=== PATIENT | female | born 1960 | race African-American/Black ===

== ENCOUNTER 2016-09-02 20:29 | Emergency (ER) | payer BC, OTHER ==
[~2016-09-02] VITALS: Ht 165.1 cm; Wt 100.0 kg
[~2016-09-02 20:29] MED LIST: BENA5TAB3 PO; NPH,100V SQ; TRAM50TA PO
[2016-09-02] MEDS ORDERED: NIFEDIPINE XL 30MG TAB PO ONE (21:00)
[2016-09-02] MEDS ORDERED: ONDANSETRON HCL 4MG/5ML ORAL SOLN PO ONE (22:15)
[2016-09-02] MEDS ORDERED: ACETAMINOPHEN 325MG TABLET PO ONE (22:15)
[2016-09-02 22:17] VITALS: BP 233/109
== END 2016-09-02 22:26 | disposition home or self-care (01) ==
LOC: ER 20:40
DX: I16.0 Hypertensive urgency (principal); I11.0 Hypertensive heart disease with heart failure; I50.9 Heart failure, unspecified; R04.0 Epistaxis; E66.9 Obesity, unspecified; R51 Headache
CPT/HCPCS: 99284; Q0162; Z7610

== ENCOUNTER 2017-08-13 17:33 | Emergency (ER) | payer BC, OTHER ==
[~2017-08-13] VITALS: Ht 160 cm; Wt 77.0 kg
[2017-08-13 19:16] LABS: EOSINOPHILS % 1.5 % (0.0-5.0); HEMATOCRIT. 24.8 % (36.0-48.0); HEMOGLOBIN. 7.9 g/dL (12.0-16.0); LYMPHOCYTES % 11.2 % (20.0-50.0); MEAN CORPUSCULAR HEMOGLOBIN 25.2 pg (28.0-32.0); MEAN PLATELET VOLUME 8.5 fl (7.4-10.4); MONOCYTES % 11.9 % (2.0-8.0); NEUTROPHILS % 74.4 % (40.0-76.0); PLATELET 383 x1000/uL (130-400); RED BLOOD CELL COUNT 3.13 mill/uL (4.2-5.4); RED CELL DISTRIBUTION WIDTH 17.5 % (11.6-14.6)
[2017-08-13 19:19] LABS: CHLORIDE 109 mEq/L (98-107)
[2017-08-13 21:13] VITALS: BP 169/84
== END 2017-08-13 21:19 | disposition home or self-care (01) ==
LOC: ER 18:24
DX: R42 Dizziness and giddiness (principal); R51 Headache; E11.65 Type 2 diabetes mellitus with hyperglycemia; I11.0 Hypertensive heart disease with heart failure; I50.9 Heart failure, unspecified; Z79.4 Long term (current) use of insulin; W01.0XXA Fall on same level from slipping, tripping and stumbling without subsequent striking against object, initial encounter; Y93.89 Activity, other specified; Y92.018 Other place in single-family (private) house as the place of occurrence of the external cause
CPT/HCPCS: 36415; 70450; 80053; 85025; 99285

== ENCOUNTER 2018-05-14 04:48 | Emergency (ER) | payer BC, OTHER ==
[~2018-05-14] VITALS: Ht 170.2 cm; Wt 77.0 kg
[~2018-05-14 04:48] MED LIST changes: -BENA5TAB3 PO; +BENA5TAB6 PO
[2018-05-14] MEDS ORDERED: MORPHINE SULFATE 10 MG/ML CPJ IM ONE (10:00)
[2018-05-14] MEDS ORDERED: KETOROLAC 60MG/2ML VIAL IM ONE (10:00)
[2018-05-14 13:54] VITALS: BP 146/78
== END 2018-05-14 13:59 | disposition home or self-care (01) ==
LOC: ER 04:48
DX: M54.32 Sciatica, left side (principal); I50.9 Heart failure, unspecified; I13.0 Hypertensive heart and chronic kidney disease with heart failure and stage 1 through stage 4 chronic kidney disease, or unspecified chronic kidney disease; E11.22 Type 2 diabetes mellitus with diabetic chronic kidney disease; N18.9 Chronic kidney disease, unspecified; Z99.2 Dependence on renal dialysis; Z98.890 Other specified postprocedural states
CPT/HCPCS: 72170; 73552; 93005; 96372; 99283; J1885; J2270; Z7610

== ENCOUNTER 2018-06-27 00:35 | Emergency (ER) | payer BC ==
[~2018-06-27] VITALS: Ht 154.9 cm; Wt 68.0 kg
[2018-06-27] MEDS ORDERED: ONDANSETRON HCL 4MG/2ML INJ IV STA (01:28)
[2018-06-27] MEDS ORDERED: SODIUM CHLORIDE 0.9% 1,000 ML IV ONE (01:28)
[2018-06-27] MEDS ORDERED: MORPHINE SULFATE 4 MG/ML CPJ (NOT FOR IM USE) IV STA (01:28)
[2018-06-27 02:03] LABS: BASOPHILS % 1.6 % (0.0-2.0); EOSINOPHILS % 7.1 % (0.0-5.0); HEMOGLOBIN. 10.9 g/dL (12.0-16.0); LYMPHOCYTES % 12.5 % (20.0-50.0); MEAN CORPUSCULAR HEMOGLOBIN 24.8 pg (28.0-32.0); MEAN CORPUSCULAR VOLUME 79.6 fL (81.0-99.0); MEAN PLATELET VOLUME 7.9 fl (7.4-10.4); MONOCYTES % 7.4 % (2.0-8.0); NEUTROPHILS % 71.4 % (40.0-76.0); PLATELET 378 x1000/uL (130-400); RED CELL DISTRIBUTION WIDTH 21.9 % (11.6-14.6)
[2018-06-27 02:10] LABS: CHLORIDE 106 mEq/L (98-107)
[2018-06-27] MEDS ORDERED: VANCOMYCIN 1 G PREMIX 200 ML IV ONE (05:30)
[2018-06-27] MEDS ORDERED: PIPERACILLIN/TAZ 3.375G PREMIX 50 ML IV ONE (05:30)
[2018-06-27] MEDS ORDERED: IOHEXOL-350 100 ML BOTTLE ONE (06:33)
[2018-06-27 09:25] VITALS: BP 157/68
== END 2018-06-27 09:40 | disposition short-term general hospital (02) ==
LOC: ER 00:35 → CANBEDREQ 08:50 → ER 09:40
DX: L02.416 Cutaneous abscess of left lower limb (principal); I13.0 Hypertensive heart and chronic kidney disease with heart failure and stage 1 through stage 4 chronic kidney disease, or unspecified chronic kidney disease; E11.22 Type 2 diabetes mellitus with diabetic chronic kidney disease; N18.9 Chronic kidney disease, unspecified; I50.9 Heart failure, unspecified; E78.00 Pure hypercholesterolemia, unspecified; Z79.4 Long term (current) use of insulin; Z99.2 Dependence on renal dialysis; Z90.710 Acquired absence of both cervix and uterus; Z79.899 Other long term (current) drug therapy; Z98.890 Other specified postprocedural states
CPT/HCPCS: 36415; 71045; 72100; 72170; 75635; 80053; 83605; 85025; 87040; 93005; 93971; 96365; 96366; 96367; 96375; 99285; J2270; J2405; J2543; J3370; J7030; Q9967

== ENCOUNTER 2018-07-23 08:42 | Inpatient (IN) | payer BC, MEDICARE ==
[~2018-07-23] VITALS: Ht 162.6 cm; Wt 58.1 kg
[2018-07-23] MEDS ORDERED: HYDRALAZINE 20MG/ML VIAL IV ONE (09:00)
[2018-07-23 10:16] LABS: CHLORIDE 103 mEq/L (98-107); HEMATOCRIT. 47.2 % (36.0-48.0); HEMOGLOBIN. 14.9 g/dL (12.0-16.0); LYMPHOCYTES % 15.3 % (20.0-50.0); MEAN CORPUSCULAR HEMOGLOBIN 25.4 pg (28.0-32.0); MEAN CORPUSCULAR VOLUME 80.5 fL (81.0-99.0); MEAN PLATELET VOLUME 9.3 fl (7.4-10.4); NEUTROPHILS % 70.7 % (40.0-76.0); PLATELET 231 x1000/uL (130-400); RED BLOOD CELL COUNT 5.86 mill/uL (4.2-5.4); RED CELL DISTRIBUTION WIDTH 24.5 % (11.6-14.6)
[2018-07-23 10:20] LABS: ETHANOL BLOOD < 10 mg/dL
[2018-07-23 10:24] LABS: CREATINE KINASE 160 IU/L (26-192)
[2018-07-23 10:27] LABS: CREATINE KINASE MB FRACTION 4.8 ng/mL (0.5-3.6)
[2018-07-23 10:30] LABS: *AMPHETAMINES SCREEN URINE NEGATIVE (NEGATIVE); *BENZODIAZEPINES SCREEN URINE NEGATIVE (NEGATIVE); *COCAINE SCREEN URINE NEGATIVE (NEGATIVE); METHADONE URINE SCREEN NEGATIVE (NEGATIVE); OPIATES URINE SCREEN NEGATIVE (NEGATIVE)
[2018-07-23 10:31] LABS: CANNABINOID URINE SCREEN NEGATIVE (NEGATIVE); PHENCYCLIDINE URINE SCREEN NEGATIVE (NEGATIVE)
[2018-07-23 10:33] LABS: *BARBITURATES SCREEN URINE NEGATIVE (NEGATIVE)
[2018-07-23 10:40] LABS: INR 1.2; PARTIAL THROMBOPLASTIN TIME 26.8 sec (23.4-31.0); PROTHROMBIN TIME 11.8 sec (9.6-11.0)
[2018-07-23] MEDS ORDERED: LORAZEPAM 2MG/ML CPJ IV ONE (11:00)
[2018-07-23 11:18] LABS: PLATELET ESTIMATE NORMAL
[2018-07-23] MEDS ORDERED: DOCUSATE SODIUM 100MG CAPSULE PO PRN (12:00)
[2018-07-23] MEDS ORDERED: IPRATROPIUM/ALBUTEROL 0.5-3(2.5)MG/3ML NEB INH PRN (12:00)
[2018-07-23] MEDS ORDERED: MAGNESIUM/ALUMINUM HYDROXIDE/SIMETHICONE 30ML UDC PO PRN (12:00)
[2018-07-23] MEDS ORDERED: ACETAMINOPHEN 325MG TABLET PO PRN (12:00)
[2018-07-23] MEDS ORDERED: DIPHENHYDRAMINE 50MG/ML VIAL IV PRN (12:00)
[2018-07-23] MEDS ORDERED: NITROGLYCERIN 0.4MG TABLET SL SL PRN (12:00)
[2018-07-23] MEDS ORDERED: GUAIFENESIN 200MG/10ML SUGAR FREE UDC PO PRN (12:00)
[2018-07-23] MEDS ORDERED: DEXTROSE 50% WATER 50ML SYRINGE IV PRN (12:00)
[2018-07-23] MEDS ORDERED: CLONIDINE 0.1MG TABLET PO PRN (12:00)
[2018-07-23] MEDS ORDERED: ONDANSETRON HCL 4MG/2ML INJ IV PRN (12:00)
[2018-07-23] MEDS ORDERED: ZOLPIDEM TARTRATE 5MG TABLET PO PRN (12:00)
[2018-07-23] MEDS ORDERED: HALOPERIDOL LACTATE 5MG/ML VIAL IM PRN (12:00)
[2018-07-23 12:27] VITALS: BP 162/89
[2018-07-23 12:37] LABS: T4 FREE 1.07 ng/dL (0.76-1.46)
[2018-07-23] MEDS: SEVELAMER CARBONATE 800 MG TABLET PO SCH ×3 (12:50→18:10)
[2018-07-23] MEDS: INSULIN LISPRO 100 UNITS/ML SUBCUT SCH ×4 (12:50→21:06)
[2018-07-23] MEDS: BLOOD SUGAR DIAGNOSTIC STRIP TEST SCH ×3 (13:00→20:56)
[2018-07-23] MEDS: LOSARTAN POTASSIUM 25 MG TABLET PO SCH (13:00)
[2018-07-23] MEDS ORDERED: AMLODIPINE 5MG TABLET PO NR (13:00)
[2018-07-23] MEDS: HYDRALAZINE HCL 50MG TABLET PO SCH ×2 (14:00→20:17)
[2018-07-23 14:16] LABS: CLARITY URINE CLOUDY (CLEAR); COLOR URINE YELLOW (YELLOW); KETONES URINE NEGATIVE (NEGATIVE); LEUKOCYTE ESTERASE URINE NEGATIVE (NEGATIVE); NITRITE URINE NEGATIVE (NEGATIVE); OCCULT BLOOD URINE 1+ (NEGATIVE); PH URINE 5.5 (4.5-8.0); PROTEIN URINE 3+ (NEGATIVE); SPECIFIC GRAVITY URINE 1.017 (1.005-1.030); UROBILINOGEN URINE 0.2 E.U./dL (0.2-1.0)
[2018-07-23] MEDS: ENOXAPARIN 30MG/0.3ML SYR SUBCUT SCH (14:43)
[2018-07-23 15:42] VITALS: BP 176/98
[2018-07-23 16:28] LABS: CREATINE KINASE 125 IU/L (26-192)
[2018-07-23 16:30] LABS: CREATINE KINASE MB FRACTION 4.4 ng/mL (0.5-3.6)
[2018-07-23] MEDS: CEFTRIAXONE 1 G PREMIX 50 ML IV SCH (17:23)
[2018-07-23 20:00] VITALS: BP 199/98
[2018-07-23] MEDS: TRAMADOL 50MG TABLET PO PRN (20:17)
[2018-07-23] MEDS: FAMOTIDINE 20MG TABLET PO SCH (20:24)
[2018-07-23 21:26] VITALS: BP 176/93
[2018-07-23] MEDS ORDERED: INSULIN GLARGINE UD 100 UNITS/ML SYR SUBCUT SCH (22:00)
[2018-07-23] MEDS ORDERED: CLONIDINE 0.2MG TABLET PO PRN (22:15)
[2018-07-23] MEDS: NITROGLYCERIN 0.4MG/HR PATCH TOP SCH (23:14)
[2018-07-24] VITALS: BP 190/90
[2018-07-24 00:32] LABS: CREATINE KINASE 94 IU/L (26-192)
[2018-07-24 00:33] LABS: CREATINE KINASE MB FRACTION 3.3 ng/mL (0.5-3.6)
[2018-07-24] MEDS: TRAMADOL 50MG TABLET PO PRN ×2 (01:56→15:33)
[2018-07-24 04:00] VITALS: BP 113/64
[2018-07-24] MEDS: BLOOD SUGAR DIAGNOSTIC STRIP TEST SCH ×3 (04:43→20:58)
[2018-07-24] MEDS: HYDRALAZINE HCL 50MG TABLET PO SCH ×4 (04:43→20:58)
[2018-07-24 06:34] LABS: HEMATOCRIT. 39.7 % (36.0-48.0); HEMOGLOBIN. 12.8 g/dL (12.0-16.0); MEAN CORPUSCULAR HEMOGLOBIN 25.7 pg (28.0-32.0); MEAN CORPUSCULAR VOLUME 79.5 fL (81.0-99.0); MEAN PLATELET VOLUME 9.7 fl (7.4-10.4); PLATELET 189 x1000/uL (130-400); RED BLOOD CELL COUNT 4.99 mill/uL (4.2-5.4); RED CELL DISTRIBUTION WIDTH 24.7 % (11.6-14.6)
[2018-07-24 08:06] VITALS: BP 175/87
[2018-07-24] MEDS: INSULIN LISPRO 100 UNITS/ML SUBCUT SCH ×3 (08:55→20:59)
[2018-07-24] MEDS: SEVELAMER CARBONATE 800 MG TABLET PO SCH ×2 (08:56→13:10)
[2018-07-24] MEDS: FAMOTIDINE 20MG TABLET PO SCH (08:56)
[2018-07-24] MEDS: LOSARTAN POTASSIUM 25 MG TABLET PO SCH (08:57)
[2018-07-24] MEDS ORDERED: ASPIRIN 325MG EC TABLET PO SCH (09:00)
[2018-07-24] MEDS ORDERED: FOLIC ACID/VITAMIN B COMP W-C TABLET PO SCH (09:00)
[2018-07-24] MEDS ORDERED: AMLODIPINE 10MG TABLET PO SCH (09:00)
[2018-07-24 12:00] VITALS: BP 171/87
[2018-07-24] MEDS ORDERED: HEPARIN SODIUM 1,000 UNIT/1ML VIAL IV NR (12:45)
[2018-07-24 14:16] LABS: PLATELET ESTIMATE NORMAL
[2018-07-24] MEDS: ENOXAPARIN 30MG/0.3ML SYR SUBCUT SCH (15:36)
[2018-07-24] MEDS: NITROGLYCERIN 0.4MG/HR PATCH TOP SCH (15:40)
[2018-07-24 16:51] VITALS: BP 185/94
[2018-07-24] MEDS: CEFTRIAXONE 1 G PREMIX 50 ML IV SCH (17:23)
[2018-07-24] MEDS ORDERED: CLONIDINE HCL 0.1MG/24HR PATCH TD SCH (18:30)
[2018-07-24 20:30] VITALS: BP 160/83
== END 2018-07-24 20:54 | disposition short-term general hospital (02) | DRG 91 ==
LOC: ER 08:42 → 6WST 11:03 → EDBEDREQ 11:14 → ENRESERV 11:54 → SUPCPDRO 11:55 → 6WST 14:12 → 7WST 17:46
PROVIDERS: ADMIT Internal Medicine; ATTEND Internal Medicine
PROC: 5A1D70Z Performance of Urinary Filtration, Intermittent, Less than 6 Hours Per Day (ICD-10-PCS; principal; 2018-07-23)
DX: G92 Toxic encephalopathy (principal); N18.6 End stage renal disease; E44.1 Mild protein-calorie malnutrition; E87.2 Acidosis; I13.2 Hypertensive heart and chronic kidney disease with heart failure and with stage 5 chronic kidney disease, or end stage renal disease; N39.0 Urinary tract infection, site not specified; E11.22 Type 2 diabetes mellitus with diabetic chronic kidney disease; E11.65 Type 2 diabetes mellitus with hyperglycemia; E78.00 Pure hypercholesterolemia, unspecified; E78.5 Hyperlipidemia, unspecified; E83.39 Other disorders of phosphorus metabolism; E83.51 Hypocalcemia; I50.9 Heart failure, unspecified; Z82.49 Family history of ischemic heart disease and other diseases of the circulatory system; Z83.3 Family history of diabetes mellitus; Z90.710 Acquired absence of both cervix and uterus; Z99.2 Dependence on renal dialysis; Z87.81 Personal history of (healed) traumatic fracture; Z79.899 Other long term (current) drug therapy; Z68.22 Body mass index [BMI] 22.0-22.9, adult
CPT/HCPCS: 36415; 70551; 71045; 80048; 80061; 80305; 80320; 82140; 82550; 82553; 82962; 83036; 83605; 83735; 83880; 84100; 84439; 84443; 84484; 93005; 93306; 93970; 99285; J0360; J0696; J1644; J1650; J1815; J2060; J7050; A4315; G0480

== ENCOUNTER 2018-08-05 18:38 | Inpatient (IN) | payer BC, MEDICARE ==
[~2018-08-05] VITALS: Ht 165.1 cm; Wt 54.4 kg
[2018-08-05] MEDS ORDERED: INSULIN REGULAR (HUMULIN R) 300UNITS/3ML SUBCUT ONE (21:00)
[2018-08-05] MEDS ORDERED: SODIUM CHLORIDE 0.9% 1,000 ML IV ONE (21:00)
[2018-08-05] MEDS ORDERED: CLONIDINE 0.2MG TABLET PO ONE (21:00)
[2018-08-05 21:01] LABS: CHLORIDE 97 mEq/L (98-107)
[2018-08-05 21:10] LABS: HEMATOCRIT. 40.2 % (36.0-48.0); HEMOGLOBIN. 12.7 g/dL (12.0-16.0); MEAN CORPUSCULAR HEMOGLOBIN 25.3 pg (28.0-32.0); MEAN CORPUSCULAR VOLUME 80.4 fL (81.0-99.0); PLATELET 405 x1000/uL (130-400); RED CELL DISTRIBUTION WIDTH 23.6 % (11.6-14.6)
[2018-08-05] MEDS ORDERED: CLONIDINE 0.1MG TABLET PO SCH (21:15)
[2018-08-05 21:33] LABS: PLATELET ESTIMATE INCREASED
[2018-08-05] MEDS ORDERED: LABETALOL 5MG/ML SYR 20 MG/4 ML SYRINGE IV ONE (21:45)
[2018-08-05] MEDS ORDERED: ONDANSETRON HCL 4MG/2ML INJ IV PRN (22:00)
[2018-08-05] MEDS ORDERED: NITROGLYCERIN 0.4MG TABLET SL SL PRN (22:00)
[2018-08-05] MEDS ORDERED: GUAIFENESIN 200MG/10ML SUGAR FREE UDC PO PRN (22:00)
[2018-08-05] MEDS ORDERED: DEXTROSE 50% WATER 50ML SYRINGE IV PRN (22:00)
[2018-08-05] MEDS ORDERED: ENOXAPARIN 40MG/0.4ML SYR SUBCUT SCH (22:00)
[2018-08-05] MEDS ORDERED: IPRATROPIUM/ALBUTEROL 0.5-3(2.5)MG/3ML NEB INH PRN (22:00)
[2018-08-05] MEDS ORDERED: DIPHENHYDRAMINE 50MG/ML VIAL IV PRN (22:00)
[2018-08-05] MEDS ORDERED: TRAMADOL 50MG TABLET PO PRN (22:00)
[2018-08-05] MEDS ORDERED: ZOLPIDEM TARTRATE 5MG TABLET PO PRN (22:00)
[2018-08-05] MEDS ORDERED: ACETAMINOPHEN 325MG TABLET PO PRN (22:00)
[2018-08-05] MEDS ORDERED: MAGNESIUM/ALUMINUM HYDROXIDE/SIMETHICONE 30ML UDC PO PRN (22:00)
[2018-08-05] MEDS ORDERED: DOCUSATE SODIUM 100MG CAPSULE PO PRN (22:00)
[2018-08-05 22:41] LABS: CLARITY URINE CLOUDY (CLEAR); COLOR URINE YELLOW (YELLOW); KETONES URINE NEGATIVE (NEGATIVE); LEUKOCYTE ESTERASE URINE TRACE (NEGATIVE); NITRITE URINE NEGATIVE (NEGATIVE); OCCULT BLOOD URINE 1+ (NEGATIVE); PH URINE 6.5 (4.5-8.0); PROTEIN URINE 3+ (NEGATIVE); SPECIFIC GRAVITY URINE 1.014 (1.005-1.030); UROBILINOGEN URINE 0.2 E.U./dL (0.2-1.0)
[2018-08-05 22:52] LABS: *AMPHETAMINES SCREEN URINE NEGATIVE (NEGATIVE); *BARBITURATES SCREEN URINE NEGATIVE (NEGATIVE); *BENZODIAZEPINES SCREEN URINE NEGATIVE (NEGATIVE); *COCAINE SCREEN URINE NEGATIVE (NEGATIVE); METHADONE URINE SCREEN NEGATIVE (NEGATIVE)
[2018-08-05 22:53] LABS: CANNABINOID URINE SCREEN NEGATIVE (NEGATIVE); OPIATES URINE SCREEN PRESUMTIVE POSITIVE (NEGATIVE); PHENCYCLIDINE URINE SCREEN NEGATIVE (NEGATIVE)
[2018-08-05 23:04] LABS: CREATINE KINASE MB FRACTION 1.8 ng/mL (0.5-3.6)
[2018-08-06] MEDS: INSULIN LISPRO 100 UNITS/ML SUBCUT SCH ×6 (00:06→22:55)
[2018-08-06 01:10] VITALS: BP 125/108
[2018-08-06] MEDS ORDERED: SODIUM POLYSTYRENE SULFONATE 15 G/60 ML BOT PO SCH (02:00)
[2018-08-06 04:00] VITALS: BP 157/90
[2018-08-06] MEDS: HYDRALAZINE HCL 50MG TABLET PO SCH ×3 (05:52→22:00)
[2018-08-06] MEDS: BLOOD SUGAR DIAGNOSTIC STRIP TEST SCH ×4 (06:39→21:00)
[2018-08-06] MEDS: SEVELAMER CARBONATE 800 MG TABLET PO SCH ×3 (07:40→17:40)
[2018-08-06] MEDS ORDERED: FAMOTIDINE 20MG TABLET PO SCH ×2 (09:00)
[2018-08-06 10:05] LABS: CREATINE KINASE 57 IU/L (26-192)
[2018-08-06] MEDS: FOLIC ACID/VITAMIN B COMP W-C TABLET PO SCH (10:05)
[2018-08-06] MEDS: MINOXIDIL 2.5MG TABLET PO SCH (10:06)
[2018-08-06] MEDS: FAMOTIDINE 20MG TABLET PO SCH (10:06)
[2018-08-06] MEDS: ASPIRIN 325MG EC TABLET PO SCH (10:06)
[2018-08-06 10:07] LABS: CREATINE KINASE MB FRACTION 1.7 ng/mL (0.5-3.6)
[2018-08-06] MEDS: METOPROLOL TARTRATE 25MG TABLET PO SCH ×3 (10:07→22:53)
[2018-08-06] MEDS: AMLODIPINE 10MG TABLET PO SCH (10:07)
[2018-08-06] MEDS: ENOXAPARIN 30MG/0.3ML SYR SUBCUT SCH (10:08)
[2018-08-06] MEDS ORDERED: SODIUM POLYSTYRENE SULFONATE 15 G/60 ML BOT PO NR (11:00)
[2018-08-06 12:00] VITALS: BP 170/90
[2018-08-06 16:00] VITALS: BP 198/96
[2018-08-06 16:35] LABS: HEPATITIS B SURFACE ANTIGEN NEGATIVE
[2018-08-06 16:42] LABS: VITAMIN B12 SERUM 1700 pg/mL (211-911)
[2018-08-06 17:05] LABS: HEPATITIS A AB IGM NEGATIVE (NEGATIVE)
[2018-08-06 20:00] VITALS: BP 136/109
[2018-08-06] MEDS: INSULIN GLARGINE UD 100 UNITS/ML SYR SUBCUT SCH (22:00)
[2018-08-07] VITALS: BP 181/96
[2018-08-07 04:00] VITALS: BP 185/86
[2018-08-07] MEDS: HYDRALAZINE HCL 50MG TABLET PO SCH (06:00)
[2018-08-07] MEDS: BLOOD SUGAR DIAGNOSTIC STRIP TEST SCH ×4 (06:46→22:10)
[2018-08-07 06:48] LABS: BASOPHILS % 0.2 % (0.0-2.0); EOSINOPHILS % 1.9 % (0.0-5.0); HEMOGLOBIN. 13.2 g/dL (12.0-16.0); LYMPHOCYTES % 14.4 % (20.0-50.0); MEAN CORPUSCULAR HEMOGLOBIN 25.1 pg (28.0-32.0); MEAN CORPUSCULAR VOLUME 80.1 fL (81.0-99.0); MEAN PLATELET VOLUME 8.5 fl (7.4-10.4); MONOCYTES % 7.3 % (2.0-8.0); NEUTROPHILS % 76.2 % (40.0-76.0); PLATELET 351 x1000/uL (130-400); RED BLOOD CELL COUNT 5.24 mill/uL (4.2-5.4); RED CELL DISTRIBUTION WIDTH 23.3 % (11.6-14.6)
[2018-08-07] MEDS: INSULIN LISPRO 100 UNITS/ML SUBCUT SCH ×4 (06:48→21:00)
[2018-08-07] MEDS: SEVELAMER CARBONATE 800 MG TABLET PO SCH ×3 (06:49→18:51)
[2018-08-07 07:15] LABS: CHLORIDE 102 mEq/L (98-107)
[2018-08-07 07:24] LABS: PHOSPHORUS 3.5 mg/dL (2.5-4.9)
[2018-08-07 08:00] VITALS: BP 174/90
[2018-08-07] MEDS: ENOXAPARIN 30MG/0.3ML SYR SUBCUT SCH ×2 (09:00→10:07)
[2018-08-07] MEDS: FOLIC ACID/VITAMIN B COMP W-C TABLET PO SCH ×2 (09:00→10:05)
[2018-08-07] MEDS: FAMOTIDINE 20MG TABLET PO SCH ×2 (09:00→10:05)
[2018-08-07] MEDS: AMLODIPINE 10MG TABLET PO SCH ×2 (09:00→10:06)
[2018-08-07] MEDS: MINOXIDIL 2.5MG TABLET PO SCH ×2 (09:00→10:06)
[2018-08-07] MEDS: METOPROLOL TARTRATE 25MG TABLET PO SCH ×3 (09:00→20:55)
[2018-08-07] MEDS: ASPIRIN 325MG EC TABLET PO SCH ×2 (09:00→10:05)
[2018-08-07] MEDS: CLONIDINE 0.2MG TABLET PO PRN ×2 (10:05→20:55)
[2018-08-07] MEDS ORDERED: CLONIDINE 0.2MG TABLET PO SCH (14:00)
[2018-08-07] MEDS ORDERED: CLONIDINE HCL 0.3MG/24HR PATCH TD SCH (14:00)
[2018-08-07] MEDS ORDERED: ONDANSETRON HCL 4MG TABLET PO PRN (15:45)
[2018-08-07 16:00] VITALS: BP 205/100
[2018-08-07] MEDS ORDERED: MINOXIDIL 2.5MG TABLET PO SCH (17:00)
[2018-08-07] MEDS ORDERED: HYDRALAZINE 20MG/ML VIAL IV PRN (17:15)
[2018-08-07 19:51] VITALS: BP 144/79
[2018-08-07 20:00] VITALS: BP 182/113
[2018-08-07] MEDS: INSULIN GLARGINE UD 100 UNITS/ML SYR SUBCUT SCH (23:07)
[2018-08-08 06:13] LABS: HIV SCREEN 4G Non Reactive (Non Reactive)
[2018-08-08] MEDS ORDERED: CEFAZOLIN 1000MG PREMIX 50 ML IV SCH (14:00)
== END 2018-08-07 23:50 | disposition short-term general hospital (02) | DRG 91 ==
LOC: ER 18:38 → 8WST 21:44 → EDBEDREQ 21:50 → EDBEDREQTM 21:50 → ENRESERV 22:05 → 8WST 08-06 03:23
PROVIDERS: ADMIT Internal Medicine; ATTEND Internal Medicine
PROC: 5A1D70Z Performance of Urinary Filtration, Intermittent, Less than 6 Hours Per Day (ICD-10-PCS; principal; 2018-08-06)
DX: G92 Toxic encephalopathy (principal); E43 Unspecified severe protein-calorie malnutrition; N18.6 End stage renal disease; E87.1 Hypo-osmolality and hyponatremia; I13.2 Hypertensive heart and chronic kidney disease with heart failure and with stage 5 chronic kidney disease, or end stage renal disease; E78.00 Pure hypercholesterolemia, unspecified; E78.5 Hyperlipidemia, unspecified; E83.39 Other disorders of phosphorus metabolism; E83.51 Hypocalcemia; E87.5 Hyperkalemia; I16.0 Hypertensive urgency; I50.9 Heart failure, unspecified; E11.22 Type 2 diabetes mellitus with diabetic chronic kidney disease; E11.65 Type 2 diabetes mellitus with hyperglycemia; D64.9 Anemia, unspecified; R74.0 Nonspecific elevation of levels of transaminase and lactic acid dehydrogenase [LDH]; Z78.1 Physical restraint status; Z79.4 Long term (current) use of insulin; Z79.899 Other long term (current) drug therapy; Z90.710 Acquired absence of both cervix and uterus; Z91.14 Patient's other noncompliance with medication regimen; Z99.2 Dependence on renal dialysis; Z68.20 Body mass index [BMI] 20.0-20.9, adult
CPT/HCPCS: 36415; 70551; 71045; 76700; 80048; 80061; 80305; 82140; 82550; 82553; 82607; 82962; 83036; 83735; 84100; 84443; 84484; 86705; 86709; 86803; 87106; 87340; 87389; 93970; 99285; J0360; J0690; J1650; J1815; J3490; J7030

== ENCOUNTER 2018-08-27 22:19 | Inpatient (IN) | payer BC, MEDICARE ==
[~2018-08-27] VITALS: Ht 167.6 cm; Wt 60.3 kg
[2018-08-27] MEDS ORDERED: SUCCINYLCHOLINE CHLORIDE 200MG/10ML IV ONE (22:26)
[2018-08-27] MEDS ORDERED: ETOMIDATE 2MG/ML 10ML VIAL IV ONE (22:26)
[2018-08-27] MEDS ORDERED: ONDANSETRON HCL 4MG/2ML INJ IV STA (22:33)
[2018-08-27] MEDS ORDERED: SODIUM CHLORIDE 0.9% 1000ML BAG (SEPSIS BOLUS) IV ONE (22:45)
[2018-08-27] MEDS ORDERED: PROPOFOL 10MG/ML 100ML 100 ML IV SCH (22:45)
[2018-08-27] MEDS ORDERED: PIPERACILLIN/TAZ 3.375G PREMIX 50 ML IV ONE (22:45)
[2018-08-27 23:27] LABS: BG BASE EXCESS -5.2 mmol/L (-2.0-2.0); BG DEOXYHEMOGLOBIN 0.8 % (0.0-5.0); BG FRACTION INSPIRED OXYGEN 50; BG HCO3 ACT 18.5 mmol/L (22.0-26.0); BG METHEMOGLOBIN 0.2 % (0.0-1.5); BG OXYGEN SATURATION 99.2 % (92.0-98.5); BG PCO2 29.6 mmHg (35.0-45.0); BG PH 7.414 (7.350-7.450); BG PO2 199.6 mmHg (75.0-100.0); BG SAMPLE SITE RIGHT RADIAL; BG TIDAL VOLUME(mL) 500 mL; BG TOTAL HEMOGLOBIN 9.5 g/dL (12.0-18.0); BG VENT MODE VENT - A/C; BG VENT RATE 12 set
[2018-08-27] MEDS ORDERED: FURO40TA5 PO (23:30)
[2018-08-27] MEDS ORDERED: ISOS60TA4 PO (23:30)
[2018-08-27] MEDS ORDERED: GABA-533 PO (23:30)
[2018-08-27] MEDS ORDERED: ATOR40TA70 PO (23:30)
[2018-08-27] MEDS ORDERED: TRAM50TA3 PO (23:30)
[2018-08-27] MEDS ORDERED: BENA40TA9 PO (23:30)
[2018-08-27] MEDS ORDERED: FERR236T3 PO (23:30)
[2018-08-27] MEDS ORDERED: FERR325T6 PO (23:30)
[2018-08-27] MEDS ORDERED: TAMS-11 PO (23:30)
[2018-08-27] MEDS ORDERED: CARV12.545 PO (23:30)
[2018-08-27] MEDS ORDERED: PAMA50CA PO (23:30)
[2018-08-27] MEDS ORDERED: NIFE60TA64 PO (23:30)
[2018-08-27] MEDS ORDERED: NPH,100V SQ (23:30)
[2018-08-27 23:55] LABS: CLARITY URINE TURBID (CLEAR); COLOR URINE YELLOW (YELLOW); KETONES URINE NEGATIVE (NEGATIVE); LEUKOCYTE ESTERASE URINE 3+ (NEGATIVE); NITRITE URINE NEGATIVE (NEGATIVE); OCCULT BLOOD URINE 2+ (NEGATIVE); PROTEIN URINE 3+ (NEGATIVE); SPECIFIC GRAVITY URINE 1.013 (1.005-1.030); UROBILINOGEN URINE 0.2 E.U./dL (0.2-1.0)
[2018-08-28] VITALS (69 sets, daily range): BP systolic 65–235; BP diastolic 35–132
[2018-08-28 00:03] LABS: HEMOGLOBIN. 9.1 g/dL (12.0-16.0); LYMPHOCYTES % 13.4 % (20.0-50.0); MEAN CORPUSCULAR HEMOGLOBIN 24.8 pg (28.0-32.0); MEAN CORPUSCULAR VOLUME 79.1 fL (81.0-99.0); MEAN PLATELET VOLUME 8.4 fl (7.4-10.4); MONOCYTES % 8.5 % (2.0-8.0); NEUTROPHILS % 74.1 % (40.0-76.0); PLATELET 516 x1000/uL (130-400); RED BLOOD CELL COUNT 3.66 mill/uL (4.2-5.4); RED CELL DISTRIBUTION WIDTH 24.7 % (11.6-14.6)
[2018-08-28 00:10] LABS: CHLORIDE 109 mEq/L (98-107)
[2018-08-28 00:16] LABS: ETHANOL BLOOD < 10 mg/dL
[2018-08-28 00:17] LABS: PROTHROMBIN TIME 10.7 sec (9.6-11.0)
[2018-08-28 00:20] LABS: CREATINE KINASE 67 IU/L (26-192)
[2018-08-28 00:38] LABS: *AMPHETAMINES SCREEN URINE NEGATIVE (NEGATIVE); *BARBITURATES SCREEN URINE NEGATIVE (NEGATIVE)
[2018-08-28 00:39] LABS: *BENZODIAZEPINES SCREEN URINE NEGATIVE (NEGATIVE); *COCAINE SCREEN URINE NEGATIVE (NEGATIVE); METHADONE URINE SCREEN NEGATIVE (NEGATIVE); OPIATES URINE SCREEN PRESUMTIVE POSITIVE (NEGATIVE); PHENCYCLIDINE URINE SCREEN NEGATIVE (NEGATIVE)
[2018-08-28 00:40] LABS: CANNABINOID URINE SCREEN NEGATIVE (NEGATIVE)
[2018-08-28] MEDS ORDERED: DEXT 5%/LACTATED RINGERS 1,000 ML IV SCH (01:20)
[2018-08-28] MEDS ORDERED: DOCUSATE SODIUM 100MG CAPSULE PO PRN (01:30)
[2018-08-28] MEDS ORDERED: ACETAMINOPHEN 325MG TABLET PO PRN (01:30)
[2018-08-28] MEDS ORDERED: NITROGLYCERIN 0.4MG TABLET SL SL PRN (01:30)
[2018-08-28] MEDS ORDERED: LORAZEPAM 2MG/ML CPJ IV PRN (01:30)
[2018-08-28] MEDS ORDERED: DEXTROSE 50% WATER 50ML SYRINGE IV PRN (01:30)
[2018-08-28] MEDS ORDERED: GUAIFENESIN 200MG/10ML SUGAR FREE UDC PO PRN (01:30)
[2018-08-28] MEDS ORDERED: MAGNESIUM/ALUMINUM HYDROXIDE/SIMETHICONE 30ML UDC PO PRN (01:30)
[2018-08-28] MEDS ORDERED: ONDANSETRON HCL 4MG/2ML INJ IV PRN (01:30)
[2018-08-28] MEDS ORDERED: PROPOFOL 10MG/ML 100ML 100 ML IV SCH (01:30)
[2018-08-28] MEDS ORDERED: IPRATROPIUM/ALBUTEROL 0.5-3(2.5)MG/3ML NEB INH PRN (01:30)
[2018-08-28] MEDS: BLOOD SUGAR DIAGNOSTIC STRIP TEST SCH ×3 (06:30→16:33)
[2018-08-28] MEDS ORDERED: PROPOFOL 10MG/ML 100ML 100 ML IV PRN (06:32)
[2018-08-28] MEDS: HYDRALAZINE HCL 50MG TABLET PO SCH ×3 (06:40→21:30)
[2018-08-28] MEDS: CLONIDINE 0.1MG TABLET PO PRN ×2 (06:40→06:41)
[2018-08-28] MEDS: INSULIN LISPRO 100 UNITS/ML SUBCUT SCH ×3 (07:00→16:46)
[2018-08-28] MEDS: SEVELAMER CARBONATE 800 MG TABLET PO SCH ×3 (07:00→16:33)
[2018-08-28] MEDS: CARVEDILOL 3.125 MG TABLET PO SCH ×2 (07:22→17:49)
[2018-08-28] MEDS: AMLODIPINE 10MG TABLET PO SCH (08:20)
[2018-08-28] MEDS: ENOXAPARIN 30MG/0.3ML SYR SUBCUT SCH (08:20)
[2018-08-28] MEDS: FOLIC ACID/VITAMIN B COMP W-C TABLET PO SCH (08:21)
[2018-08-28] MEDS: ASPIRIN 325MG EC TABLET PO SCH (08:21)
[2018-08-28] MEDS ORDERED: VANCOMYCIN 1250MG in DEXTROSE 5% WATER 250ML IV SCH (09:00)
[2018-08-28] MEDS: IPRATROPIUM/ALBUTEROL 0.5-3(2.5)MG/3ML NEB HHN SCH ×2 (09:15→20:41)
[2018-08-28] MEDS: PIPERACILLIN/TAZ 2.25G PREMIX 50 ML IV SCH ×3 (09:18→20:20)
[2018-08-28] MEDS: FAMOTIDINE 20MG TABLET PO SCH (09:18)
[2018-08-28 10:05] LABS: CREATINE KINASE MB FRACTION 2.4 ng/mL (0.5-3.6)
[2018-08-28 10:28] LABS: BG BASE EXCESS -5.8 mmol/L (-2.0-2.0); BG CARBOXYHEMOGLOBIN 0.3 % (0.5-1.5); BG DEOXYHEMOGLOBIN 0.8 % (0.0-5.0); BG FRACTION INSPIRED OXYGEN 50; BG HCO3 ACT 18.5 mmol/L (22.0-26.0); BG METHEMOGLOBIN 0.3 % (0.0-1.5); BG OXYGEN SATURATION 99.2 % (92.0-98.5); BG OXYHEMOGLOBIN 98.6 % (94.0-97.0); BG PCO2 31.8 mmHg (35.0-45.0); BG PH 7.382 (7.350-7.450); BG PO2 258.2 mmHg (75.0-100.0); BG SAMPLE SITE RIGHT RADIAL; BG TIDAL VOLUME(mL) 500 mL; BG TOTAL HEMOGLOBIN 9.7 g/dL (12.0-18.0); BG VENT MODE VENT - A/C; BG VENT RATE 12 set
[2018-08-28] MEDS: HYDRALAZINE 20MG/ML VIAL IV PRN ×2 (10:28→17:49)
[2018-08-28] MEDS: FENTANYL CITRATE/PF 500 MCG in SODIUM CHLORIDE 0.9% 40 ML IV PRN (11:06)
[2018-08-28] MEDS: MIDAZOLAM HCL 100 MG in DEXT 5% WATER 80 ML IV PRN (11:08)
[2018-08-28] MEDS ORDERED: ALTEPLASE 2MG/VIAL ITC NR ×2 (14:30)
[2018-08-28 15:29] LABS: CREATINE KINASE MB FRACTION 2.3 ng/mL (0.5-3.6)
[2018-08-28] MEDS: NITROGLYCERIN OINT 1GM/INCH UDPKT TD SCH (16:25)
[2018-08-28] MEDS ORDERED: ATORVASTATIN CALCIUM 40MG TABLET PO SCH (21:00)
[2018-08-28] MEDS ORDERED: EPOETIN ALFA 10000UNITS/ML VIAL SUBCUT SCH (21:00)
[2018-08-28] MEDS ORDERED: HEPARIN SODIUM 1,000 UNIT/1ML VIAL IV NR (22:15)
[2018-08-28] MEDS ORDERED: NOREPINEPHRINE 4 MG in DEXT 5% WATER 246 ML IV PRN (22:30)
[2018-08-29] VITALS (64 sets, daily range): BP systolic 92–186; BP diastolic 53–82
[2018-08-29] MEDS: IPRATROPIUM/ALBUTEROL 0.5-3(2.5)MG/3ML NEB HHN SCH ×5 (00:22→16:40)
[2018-08-29] MEDS: BLOOD SUGAR DIAGNOSTIC STRIP TEST SCH ×3 (00:42→11:58)
[2018-08-29] MEDS ORDERED: HEPARIN SODIUM 1,000 UNIT/1ML VIAL IV NR (00:45)
[2018-08-29] MEDS: FENTANYL CITRATE/PF 500 MCG in SODIUM CHLORIDE 0.9% 40 ML IV PRN (02:01)
[2018-08-29] MEDS: MIDAZOLAM HCL 100 MG in DEXT 5% WATER 80 ML IV PRN (02:03)
[2018-08-29] MEDS: PIPERACILLIN/TAZ 2.25G PREMIX 50 ML IV SCH (02:11)
[2018-08-29 05:39] LABS: HEMATOCRIT. 28.1 % (36.0-48.0); MEAN CORPUSCULAR HEMOGLOBIN 25.3 pg (28.0-32.0); MEAN CORPUSCULAR VOLUME 79.3 fL (81.0-99.0); MEAN PLATELET VOLUME 8.2 fl (7.4-10.4); PLATELET 406 x1000/uL (130-400); RED BLOOD CELL COUNT 3.54 mill/uL (4.2-5.4); RED CELL DISTRIBUTION WIDTH 24.1 % (11.6-14.6)
[2018-08-29] MEDS: INSULIN LISPRO 100 UNITS/ML SUBCUT SCH ×3 (06:00→11:58)
[2018-08-29 06:04] LABS: PHOSPHORUS 4.1 mg/dL (2.5-4.9)
[2018-08-29] MEDS: SEVELAMER CARBONATE 800 MG TABLET PO SCH ×2 (06:11→11:58)
[2018-08-29] MEDS: CARVEDILOL 3.125 MG TABLET PO SCH (06:11)
[2018-08-29] MEDS: HYDRALAZINE HCL 50MG TABLET PO SCH ×2 (06:11→14:20)
[2018-08-29 08:07] LABS: BG BASE EXCESS -4.3 mmol/L (-2.0-2.0); BG CARBOXYHEMOGLOBIN 0.2 % (0.5-1.5); BG DEOXYHEMOGLOBIN 1.2 % (0.0-5.0); BG FRACTION INSPIRED OXYGEN 40; BG HCO3 ACT 19.2 mmol/L (22.0-26.0); BG METHEMOGLOBIN 0.3 % (0.0-1.5); BG OXYGEN SATURATION 98.8 % (92.0-98.5); BG OXYHEMOGLOBIN 98.3 % (94.0-97.0); BG PCO2 30.3 mmHg (35.0-45.0); BG PO2 150.1 mmHg (75.0-100.0); BG SAMPLE SITE RIGHT RADIAL; BG TIDAL VOLUME(mL) 500 mL; BG TOTAL HEMOGLOBIN 11.1 g/dL (12.0-18.0); BG VENT MODE VENT - A/C; BG VENT RATE 12 set
[2018-08-29] MEDS ORDERED: VANCOMYCIN 500 MG PREMIX 100 ML IV SCH (09:00)
[2018-08-29] MEDS: AMLODIPINE 10MG TABLET PO SCH ×2 (09:00→09:54)
[2018-08-29] MEDS: FOLIC ACID/VITAMIN B COMP W-C TABLET PO SCH (09:53)
[2018-08-29] MEDS: ENOXAPARIN 30MG/0.3ML SYR SUBCUT SCH (09:54)
[2018-08-29] MEDS: FAMOTIDINE 20MG TABLET PO SCH (09:54)
[2018-08-29] MEDS: ASPIRIN 325MG EC TABLET PO SCH (09:55)
[2018-08-29] MEDS: NITROGLYCERIN OINT 1GM/INCH UDPKT TD SCH (09:55)
[2018-08-29] MEDS ORDERED: PIPERACILLIN/TAZ 2.25G PREMIX 50 ML IV SCH (10:00)
[2018-08-29 11:56] LABS: PLATELET ESTIMATE NORMAL
[2018-08-29 12:56] LABS: BG BASE EXCESS -3.6 mmol/L (-2.0-2.0); BG CARBOXYHEMOGLOBIN 0.3 % (0.5-1.5); BG DEOXYHEMOGLOBIN 1.2 % (0.0-5.0); BG FRACTION INSPIRED OXYGEN 40; BG HCO3 ACT 20.3 mmol/L (22.0-26.0); BG METHEMOGLOBIN 0.3 % (0.0-1.5); BG OXYGEN SATURATION 98.8 % (92.0-98.5); BG OXYHEMOGLOBIN 98.2 % (94.0-97.0); BG PCO2 32.1 mmHg (35.0-45.0); BG PH 7.418 (7.350-7.450); BG PO2 158.4 mmHg (75.0-100.0); BG PRESSURE SUPPORT 8; BG SAMPLE SITE RIGHT RADIAL; BG TOTAL HEMOGLOBIN 10.1 g/dL (12.0-18.0); BG VENT MODE VENT - CPAP
[2018-09-03 09:11] LABS: 7-AMINOCLONAZEPAM CONFIRM Negative (.); ALPRAZOLAM CONFIRM Negative (.); CHLORDIAZEPOXIDE CONFIRM Negative (.); CLONAZEPAM CONFIRM Negative (.); DESMETHYLCHLORDIAZEPOXIDE Negative (.); DIAZEPAM CONFIRM Negative (.); FLURAZEPAM CONFIRM Negative (.); LORAZEPAM CONFIRM Negative (.); MIDAZOLAM CONFIRM 135 ng/mL (.); OXAZEPAM CONFIRM Negative (.); TEMAZEPAM CONFIRM Negative (.); TRIAZOLAM CONFIRM Negative (.)
[2018-09-07 19:14] LABS: BARBITURATE SCREEN Negative ug/mL (Cutoff:0.1); BENZODIAZEPINE SCREEN ++POSITIVE++ ng/mL (Cutoff:20); OPIATES SCREEN Negative ng/mL (Cutoff:5); PHENCYCLIDINE SCREEN Negative ng/mL (Cutoff:8)
== END 2018-08-29 17:57 | disposition short-term general hospital (02) | DRG 871 ==
LOC: ER 22:34 → MICUNO 08-28 00:57 → EDBEDREQ 08-28 01:01 → EDBEDREQTM 08-28 01:01 → EDBEDREQSVC 08-28 01:01 → EDBEDREQDT 08-28 01:01 → ENRESERV 08-28 04:47
PROVIDERS: ADMIT Internal Medicine; ATTEND Internal Medicine
PROC: 5A1D70Z Performance of Urinary Filtration, Intermittent, Less than 6 Hours Per Day (ICD-10-PCS; principal; 2018-08-28)
PROC: 0BH17EZ Insertion of Endotracheal Airway into Trachea, Via Natural or Artificial Opening (ICD-10-PCS; 2018-08-28)
PROC: 5A1945Z Respiratory Ventilation, 24-96 Consecutive Hours (ICD-10-PCS; 2018-08-28)
PROC: 5A1D70Z Performance of Urinary Filtration, Intermittent, Less than 6 Hours Per Day (ICD-10-PCS; 2018-08-29)
DX: A41.9 Sepsis, unspecified organism (principal); E43 Unspecified severe protein-calorie malnutrition; J96.00 Acute respiratory failure, unspecified whether with hypoxia or hypercapnia; N18.6 End stage renal disease; G92 Toxic encephalopathy; I13.2 Hypertensive heart and chronic kidney disease with heart failure and with stage 5 chronic kidney disease, or end stage renal disease; N25.81 Secondary hyperparathyroidism of renal origin; N39.0 Urinary tract infection, site not specified; I50.42 Chronic combined systolic (congestive) and diastolic (congestive) heart failure; D63.8 Anemia in other chronic diseases classified elsewhere; E11.22 Type 2 diabetes mellitus with diabetic chronic kidney disease; E78.00 Pure hypercholesterolemia, unspecified; E78.5 Hyperlipidemia, unspecified; Z82.49 Family history of ischemic heart disease and other diseases of the circulatory system; Z83.3 Family history of diabetes mellitus; Z90.710 Acquired absence of both cervix and uterus; Z99.2 Dependence on renal dialysis; Z68.21 Body mass index [BMI] 21.0-21.9, adult
CPT/HCPCS: 36415; 36600; 70551; 71045; 80048; 80061; 80202; 80305; 80307; 80320; 80329; 82140; 82375; 82550; 82553; 82805; 82962; 83036; 83605; 83735; 84100; 84145; 84443; 84478; 84484; 87070; 93005; 93970; 94002; 94003; 94640; 96365; 96375; 99291; J0330; J0360; J0885; J1644; J1650; J1815; J2250; J2405; J2543; J2704; J2997; J3010; J3370; J3490; J7030; J7050; J7060; J7620; A4315; G0480

== ENCOUNTER 2018-12-06 19:43 | Emergency (ER) | payer BC, MEDICARE ==
[~2018-12-06] VITALS: Ht 165.1 cm; Wt 69.0 kg
[~2018-12-06 19:43] MED LIST changes: +ATOR40TA70 PO; +BENA40TA9 PO; -BENA5TAB6 PO; +CARV12.545 PO; +FERR236T3 PO; +FERR325T6 PO; +FURO40TA5 PO; +GABA-533 PO; +ISOS60TA4 PO; +NIFE60TA64 PO; +PAMA50CA PO; +TAMS-11 PO; -TRAM50TA PO; +TRAM50TA3 PO
[2018-12-06] MEDS ORDERED: ONDANSETRON 4MG ODT PO ONE (21:15)
[2018-12-06] MEDS ORDERED: IBUPROFEN 800MG TABLET PO ONE (21:15)
[2018-12-07] MEDS ORDERED: NA PHOS,M-B/NA PHOS,DI-BA ENEMA 118ML PR ONE
[2018-12-07 01:00] VITALS: BP 143/86
== END 2018-12-07 01:13 | disposition home or self-care (01) ==
LOC: ER 19:43
DX: K59.00 Constipation, unspecified (principal); I10 Essential (primary) hypertension
CPT/HCPCS: 74018; 99284; Q0162

== ENCOUNTER 2019-02-21 04:40 | Inpatient (IN) | payer BC, MEDICARE, OTHER ==
[~2019-02-21] VITALS: Ht 193 cm; Wt 76.7 kg
[~2019-02-21 04:40] MED LIST changes: +NIFE-32 PO; -NIFE60TA64 PO
[2019-02-21] MEDS ORDERED: MORPHINE SULFATE 4 MG/ML CPJ (NOT FOR IM USE) IV STA (05:04)
[2019-02-21] MEDS ORDERED: ONDANSETRON HCL 4MG/2ML INJ IV STA (05:04)
[2019-02-21] MEDS ORDERED: LABETALOL 5MG/ML SYR 20 MG/4 ML SYRINGE IV ONE (05:15)
[2019-02-21 05:35] LABS: BASOPHILS % 1.4 % (0.0-2.0); EOSINOPHILS % 6.3 % (0.0-5.0); HEMATOCRIT. 29.4 % (36.0-48.0); HEMOGLOBIN. 9.7 g/dL (12.0-16.0); LYMPHOCYTES % 22.1 % (20.0-50.0); MEAN CORPUSCULAR HEMOGLOBIN 28.1 pg (28.0-32.0); MEAN CORPUSCULAR VOLUME 85.7 fL (81.0-99.0); MEAN PLATELET VOLUME 8.5 fl (7.4-10.4); MONOCYTES % 8.1 % (2.0-8.0); NEUTROPHILS % 62.1 % (40.0-76.0); PLATELET 161 x1000/uL (130-400); RED BLOOD CELL COUNT 3.43 mill/uL (4.2-5.4); RED CELL DISTRIBUTION WIDTH 17.8 % (11.6-14.6)
[2019-02-21 05:37] LABS: CHLORIDE 108 mEq/L (98-107)
[2019-02-21] MEDS ORDERED: ONDANSETRON HCL 4MG/2ML INJ IV PRN (07:15)
[2019-02-21] MEDS ORDERED: MAGNESIUM/ALUMINUM HYDROXIDE/SIMETHICONE 30ML UDC PO PRN (07:15)
[2019-02-21] MEDS ORDERED: ZOLPIDEM TARTRATE 5MG TABLET PO PRN (07:15)
[2019-02-21] MEDS ORDERED: IPRATROPIUM/ALBUTEROL 0.5-3(2.5)MG/3ML NEB NEB PRN (07:15)
[2019-02-21] MEDS ORDERED: DIPHENHYDRAMINE 50MG/ML VIAL IV PRN (07:15)
[2019-02-21] MEDS ORDERED: DEXTROSE 50% WATER 50ML SYRINGE IV PRN (07:15)
[2019-02-21] MEDS ORDERED: GUAIFENESIN 200MG/10ML SUGAR FREE UDC PO PRN (07:15)
[2019-02-21] MEDS ORDERED: ACETAMINOPHEN 325MG TABLET PO PRN (07:15)
[2019-02-21] MEDS ORDERED: ENOXAPARIN 40MG/0.4ML SYR SUBCUT SCH (07:15)
[2019-02-21] MEDS ORDERED: DOCUSATE SODIUM 100MG CAPSULE PO PRN (07:15)
[2019-02-21] MEDS: INSULIN LISPRO 100 UNITS/ML SUBCUT SCH ×4 (08:20→21:00)
[2019-02-21] MEDS: BLOOD SUGAR DIAGNOSTIC STRIP TEST SCH ×4 (09:16→21:57)
[2019-02-21] MEDS ORDERED: NIFEDIPINE XL 60MG TAB PO NR (09:30)
[2019-02-21] MEDS ORDERED: METOCLOPRAMIDE 10MG/10 ML UDC PO NR (09:30)
[2019-02-21] MEDS ORDERED: FOLIC ACID/VITAMIN B COMP W-C TABLET PO NR (09:30)
[2019-02-21] MEDS: FAMOTIDINE 20MG TABLET PO SCH (09:43)
[2019-02-21] MEDS: ENOXAPARIN 30MG/0.3ML SYR SUBCUT SCH (10:42)
[2019-02-21] MEDS ORDERED: METOCLOPRAMIDE 10MG/10 ML UDC PO SCH (12:50)
[2019-02-21] MEDS: CLONIDINE 0.1MG TABLET PO PRN (14:28)
[2019-02-21] MEDS ORDERED: NITROGLYCERIN 0.4MG TABLET SL SL PRN (15:38)
[2019-02-21] MEDS: HYDRALAZINE HCL 50MG TABLET PO SCH ×2 (15:53→21:57)
[2019-02-21] MEDS: TRAMADOL 50MG TABLET PO PRN (15:54)
[2019-02-21 16:00] VITALS: BP 96/62
[2019-02-21] MEDS: METOCLOPRAMIDE 10MG/10 ML UDC PO SCH (17:20)
[2019-02-21 17:34] LABS: CREATINE KINASE 238 IU/L (26-192)
[2019-02-21 17:46] VITALS: BP 191/95
[2019-02-21] MEDS: CARVEDILOL 12.5MG TABLET PO SCH (17:59)
[2019-02-21 20:26] VITALS: BP 105/65
[2019-02-21 23:46] LABS: CREATINE KINASE 220 IU/L (26-192); CREATINE KINASE MB FRACTION 3.2 ng/mL (0.5-3.6)
[2019-02-22 00:49] VITALS: BP 160/75
[2019-02-22 04:00] VITALS: BP 157/73
[2019-02-22] MEDS: TRAMADOL 50MG TABLET PO PRN ×3 (04:03→21:28)
[2019-02-22] MEDS: BLOOD SUGAR DIAGNOSTIC STRIP TEST SCH ×4 (06:12→21:05)
[2019-02-22] MEDS: CARVEDILOL 12.5MG TABLET PO SCH ×2 (06:16→17:33)
[2019-02-22] MEDS: HYDRALAZINE HCL 50MG TABLET PO SCH ×2 (06:16→12:33)
[2019-02-22] MEDS: METOCLOPRAMIDE 10MG/10 ML UDC PO SCH ×3 (06:21→17:34)
[2019-02-22] MEDS: INSULIN LISPRO 100 UNITS/ML SUBCUT SCH ×4 (07:39→21:00)
[2019-02-22 08:13] LABS: BASOPHILS % 1.1 % (0.0-2.0); EOSINOPHILS % 7.7 % (0.0-5.0); HEMATOCRIT. 24.4 % (36.0-48.0); HEMOGLOBIN. 8.2 g/dL (12.0-16.0); LYMPHOCYTES % 22.9 % (20.0-50.0); MEAN CORPUSCULAR HEMOGLOBIN 28.3 pg (28.0-32.0); MEAN CORPUSCULAR VOLUME 84.2 fL (81.0-99.0); MEAN PLATELET VOLUME 8.6 fl (7.4-10.4); MONOCYTES % 11.1 % (2.0-8.0); NEUTROPHILS % 57.2 % (40.0-76.0); PLATELET 128 x1000/uL (130-400); RED BLOOD CELL COUNT 2.89 mill/uL (4.2-5.4); RED CELL DISTRIBUTION WIDTH 17.2 % (11.6-14.6)
[2019-02-22 08:30] VITALS: BP 177/85
[2019-02-22] MEDS ORDERED: NIFEDIPINE XL 60MG TAB PO SCH (09:00)
[2019-02-22 09:05] LABS: PHOSPHORUS 8.3 mg/dL (2.5-4.9)
[2019-02-22] MEDS: FAMOTIDINE 20MG TABLET PO SCH (09:25)
[2019-02-22] MEDS: FOLIC ACID/VITAMIN B COMP W-C TABLET PO SCH (09:26)
[2019-02-22] MEDS: ENOXAPARIN 30MG/0.3ML SYR SUBCUT SCH (09:27)
[2019-02-22 12:02] VITALS: BP 188/88
[2019-02-22 15:54] VITALS: BP 130/64
[2019-02-22 20:00] VITALS: BP 162/77
[2019-02-22] MEDS ORDERED: EPOETIN ALFA 10000UNITS/ML VIAL SUBCUT SCH (21:00)
[2019-02-22] MEDS: HYDRALAZINE HCL 100MG TABLET PO SCH (21:06)
[2019-02-22] MEDS: NIFEDIPINE XL 60MG TAB PO SCH (21:06)
[2019-02-23] VITALS: BP 157/76
[2019-02-23 04:00] VITALS: BP 137/64
[2019-02-23] MEDS: CARVEDILOL 12.5MG TABLET PO SCH ×2 (05:55→18:32)
[2019-02-23] MEDS: HYDRALAZINE HCL 100MG TABLET PO SCH ×3 (05:55→22:30)
[2019-02-23] MEDS: BLOOD SUGAR DIAGNOSTIC STRIP TEST SCH ×4 (06:23→21:55)
[2019-02-23] MEDS: METOCLOPRAMIDE 10MG/10 ML UDC PO SCH ×3 (06:23→17:20)
[2019-02-23 07:12] LABS: BASOPHILS % 0.8 % (0.0-2.0); EOSINOPHILS % 6.4 % (0.0-5.0); HEMATOCRIT. 25.3 % (36.0-48.0); HEMOGLOBIN. 8.4 g/dL (12.0-16.0); LYMPHOCYTES % 23.6 % (20.0-50.0); MEAN CORPUSCULAR VOLUME 84.7 fL (81.0-99.0); MEAN PLATELET VOLUME 9.4 fl (7.4-10.4); MONOCYTES % 11.3 % (2.0-8.0); NEUTROPHILS % 57.9 % (40.0-76.0); PLATELET 126 x1000/uL (130-400); RED BLOOD CELL COUNT 2.99 mill/uL (4.2-5.4); RED CELL DISTRIBUTION WIDTH 17.1 % (11.6-14.6)
[2019-02-23] MEDS: INSULIN LISPRO 100 UNITS/ML SUBCUT SCH ×4 (07:50→22:31)
[2019-02-23 07:52] LABS: PHOSPHORUS 8.9 mg/dL (2.5-4.9)
[2019-02-23 08:02] VITALS: BP 158/80
[2019-02-23] MEDS: NIFEDIPINE XL 60MG TAB PO SCH ×2 (09:00→20:46)
[2019-02-23] MEDS: ENOXAPARIN 30MG/0.3ML SYR SUBCUT SCH (09:31)
[2019-02-23] MEDS: FOLIC ACID/VITAMIN B COMP W-C TABLET PO SCH (09:31)
[2019-02-23] MEDS: FAMOTIDINE 20MG TABLET PO SCH (09:31)
[2019-02-23 11:56] VITALS: BP 139/70
[2019-02-23] MEDS: SEVELAMER CARBONATE 800 MG TABLET PO SCH ×2 (13:24→18:32)
[2019-02-23 16:06] VITALS: BP 132/83
[2019-02-23 20:00] VITALS: BP 212/97
[2019-02-23] MEDS: CLONIDINE 0.1MG TABLET PO PRN (20:46)
[2019-02-23] MEDS: TRAMADOL 50MG TABLET PO PRN (22:35)
[2019-02-24] VITALS: BP 165/68
[2019-02-24 04:00] VITALS: BP 125/68
[2019-02-24 06:17] LABS: BASOPHILS % 1.1 % (0.0-2.0); EOSINOPHILS % 6.3 % (0.0-5.0); HEMATOCRIT. 26.2 % (36.0-48.0); HEMOGLOBIN. 8.6 g/dL (12.0-16.0); LYMPHOCYTES % 22.7 % (20.0-50.0); MEAN CORPUSCULAR HEMOGLOBIN 27.9 pg (28.0-32.0); MEAN CORPUSCULAR VOLUME 84.4 fL (81.0-99.0); MEAN PLATELET VOLUME 9.2 fl (7.4-10.4); MONOCYTES % 12.1 % (2.0-8.0); NEUTROPHILS % 57.8 % (40.0-76.0); PLATELET 131 x1000/uL (130-400); RED CELL DISTRIBUTION WIDTH 16.4 % (11.6-14.6)
[2019-02-24 06:24] LABS: PHOSPHORUS 6.9 mg/dL (2.5-4.9)
[2019-02-24] MEDS: BLOOD SUGAR DIAGNOSTIC STRIP TEST SCH (06:51)
[2019-02-24] MEDS: METOCLOPRAMIDE 10MG/10 ML UDC PO SCH (06:52)
[2019-02-24] MEDS: CARVEDILOL 12.5MG TABLET PO SCH (07:01)
[2019-02-24] MEDS: HYDRALAZINE HCL 100MG TABLET PO SCH (07:01)
[2019-02-24] MEDS: INSULIN LISPRO 100 UNITS/ML SUBCUT SCH (07:50)
[2019-02-24 08:00] VITALS: BP 139/72
[2019-02-24] MEDS: SEVELAMER CARBONATE 800 MG TABLET PO SCH (08:52)
[2019-02-24] MEDS: FOLIC ACID/VITAMIN B COMP W-C TABLET PO SCH (08:52)
[2019-02-24] MEDS: FAMOTIDINE 20MG TABLET PO SCH (08:52)
[2019-02-24] MEDS: NIFEDIPINE XL 60MG TAB PO SCH (08:53)
[2019-02-24 11:49] VITALS: BP 139/72
== END 2019-02-24 13:05 | disposition home or self-care (01) | DRG 73 ==
LOC: ER 04:40 → 6WST 06:01 → ENRESERV 13:45
PROVIDERS: ADMIT Internal Medicine; ATTEND Internal Medicine
PROC: 5A1D70Z Performance of Urinary Filtration, Intermittent, Less than 6 Hours Per Day (ICD-10-PCS; principal; 2019-02-21)
PROC: 5A1D70Z Performance of Urinary Filtration, Intermittent, Less than 6 Hours Per Day (ICD-10-PCS; 2019-02-22)
DX: E11.43 Type 2 diabetes mellitus with diabetic autonomic (poly)neuropathy (principal); N18.6 End stage renal disease; I13.2 Hypertensive heart and chronic kidney disease with heart failure and with stage 5 chronic kidney disease, or end stage renal disease; I31.3 Pericardial effusion (noninflammatory); D63.8 Anemia in other chronic diseases classified elsewhere; E11.22 Type 2 diabetes mellitus with diabetic chronic kidney disease; E78.5 Hyperlipidemia, unspecified; E83.51 Hypocalcemia; E87.5 Hyperkalemia; I16.0 Hypertensive urgency; I50.9 Heart failure, unspecified; R74.0 Nonspecific elevation of levels of transaminase and lactic acid dehydrogenase [LDH]; K31.84 Gastroparesis; K52.9 Noninfective gastroenteritis and colitis, unspecified; K62.89 Other specified diseases of anus and rectum; K80.20 Calculus of gallbladder without cholecystitis without obstruction; Z79.4 Long term (current) use of insulin; Z99.2 Dependence on renal dialysis; Z82.49 Family history of ischemic heart disease and other diseases of the circulatory system; Z83.3 Family history of diabetes mellitus
CPT/HCPCS: 36415; 71045; 74176; 80048; 80053; 80061; 82105; 82378; 82550; 82553; 82962; 83036; 83605; 83735; 84100; 84484; 85025; 86301; 86304; 93005; 93306; 93970; 96374; 99285; J0885; J1650; J1815; J2270; J2405; J3490; J8597

== ENCOUNTER 2019-06-18 10:19 | Emergency (ER) | payer BC, MEDICARE, OTHER ==
[~2019-06-18] VITALS: Ht 154.9 cm; Wt 69.0 kg
[2019-06-18] MEDS ORDERED: PIPERACILLIN/TAZ 3.375G PREMIX 50 ML IV ONE (10:30)
[2019-06-18] MEDS ORDERED: VANCOMYCIN 1 G PREMIX 200 ML IV ONE (10:30)
[2019-06-18 11:44] LABS: CHLORIDE 102 mEq/L (98-107)
[2019-06-18 11:47] LABS: INR 1.1; PROTHROMBIN TIME 11.6 sec (9.6-11.0)
[2019-06-18 11:57] LABS: HEMOGLOBIN. 15.2 g/dL (12.0-16.0); MEAN CORPUSCULAR HEMOGLOBIN 27.2 pg (28.0-32.0); MEAN PLATELET VOLUME 10.4 fl (7.4-10.4); PLATELET 186 x1000/uL (130-400); RED BLOOD CELL COUNT 5.59 mill/uL (4.2-5.4); RED CELL DISTRIBUTION WIDTH 18.8 % (11.6-14.6)
[2019-06-18 12:51] VITALS: BP 115/60
[2019-06-18 12:56] LABS: PLATELET ESTIMATE NORMAL
== END 2019-06-18 14:32 | disposition left against medical advice (07) ==
LOC: ER 10:19 → CANBEDREQ 15:04
DX: I95.3 Hypotension of hemodialysis (principal); I13.2 Hypertensive heart and chronic kidney disease with heart failure and with stage 5 chronic kidney disease, or end stage renal disease; E11.22 Type 2 diabetes mellitus with diabetic chronic kidney disease; N18.6 End stage renal disease; I50.9 Heart failure, unspecified; Z99.2 Dependence on renal dialysis; Z79.4 Long term (current) use of insulin
CPT/HCPCS: 36415; 71045; 80053; 83605; 84145; 84484; 85025; 85610; 87040; 93005; 96365; 96375; 99285; J2543; J3370

== ENCOUNTER 2019-06-23 23:33 | Inpatient (IN) | payer BC, MEDICARE, OTHER ==
[~2019-06-23] VITALS: Ht 157.5 cm; Wt 67.1 kg
[2019-06-24] MEDS ORDERED: DEXTROSE 50% WATER 50ML SYRINGE IV ONE ×3 (00:36→02:00)
[2019-06-24 01:18] LABS: HEMATOCRIT. 48.2 % (36.0-48.0); HEMOGLOBIN. 15.3 g/dL (12.0-16.0); MEAN CORPUSCULAR HEMOGLOBIN 26.6 pg (28.0-32.0); MEAN CORPUSCULAR VOLUME 83.8 fL (81.0-99.0); MEAN PLATELET VOLUME 9.4 fl (7.4-10.4); PLATELET 224 x1000/uL (130-400); RED BLOOD CELL COUNT 5.76 mill/uL (4.2-5.4); RED CELL DISTRIBUTION WIDTH 18.7 % (11.6-14.6)
[2019-06-24 01:25] LABS: CHLORIDE 99 mEq/L (98-107)
[2019-06-24] MEDS ORDERED: ALBUTEROL (0.5%) 2.5MG/0.5ML NEB HHN ONE (02:00)
[2019-06-24] MEDS ORDERED: INSULIN REGULAR (HUMULIN R) UD 100 UNITS/ML SYR IV ONE (02:00)
[2019-06-24] MEDS ORDERED: CALCIUM GLUCONATE 100MG/ML 10ML VIAL IV ONE (02:00)
[2019-06-24] MEDS ORDERED: INSULIN REGULAR (HUMULIN R) 300UNITS/3ML IV SCH (02:30)
[2019-06-24] MEDS ORDERED: CALCIUM GLUCONATE 2,000 MG in DEXT 5% WATER 100 ML IV SCH (03:00)
[2019-06-24] MEDS ORDERED: CALCIUM GLUCONATE 1,000 MG in DEXT 5% WATER 100 ML IV SCH (03:00)
[2019-06-24 04:37] LABS: PLATELET ESTIMATE NORMAL
[2019-06-24] MEDS ORDERED: CLONIDINE 0.1MG TABLET PO PRN (07:45)
[2019-06-24] MEDS ORDERED: ONDANSETRON HCL 4MG/2ML INJ IV PRN (07:45)
[2019-06-24] MEDS ORDERED: NITROGLYCERIN 0.4MG TABLET SL SL PRN (07:45)
[2019-06-24] MEDS ORDERED: GUAIFENESIN 200MG/10ML SUGAR FREE UDC PO PRN (07:45)
[2019-06-24] MEDS ORDERED: MAGNESIUM/ALUMINUM HYDROXIDE/SIMETHICONE 30ML UDC PO PRN (07:45)
[2019-06-24] MEDS ORDERED: DIPHENHYDRAMINE 50MG/ML VIAL IV PRN (07:45)
[2019-06-24] MEDS ORDERED: ACETAMINOPHEN 325MG TABLET PO PRN (07:45)
[2019-06-24] MEDS ORDERED: DEXTROSE 50% WATER 50ML SYRINGE IV PRN (07:45)
[2019-06-24] MEDS ORDERED: IPRATROPIUM/ALBUTEROL 0.5-3(2.5)MG/3ML NEB ORI PRN (08:00)
[2019-06-24] MEDS ORDERED: ASCORBIC ACID 500 MG TABLET PO SCH (09:00)
[2019-06-24] MEDS: BLOOD SUGAR DIAGNOSTIC STRIP TEST SCH ×4 (09:00→21:00)
[2019-06-24] MEDS ORDERED: DOCUSATE SODIUM 100MG CAPSULE PO PRN (09:00)
[2019-06-24 09:34] LABS: CREATINE KINASE MB FRACTION 8.7 ng/mL (0.5-3.6)
[2019-06-24 09:44] LABS: CREATINE KINASE 1063 IU/L (26-192)
[2019-06-24 10:48] LABS: FIBRINOGEN > 999 mg/dL (200-400)
[2019-06-24] MEDS: AMLODIPINE 10MG TABLET PO SCH (12:00)
[2019-06-24] MEDS: METOCLOPRAMIDE HCL 5MG TABLET PO SCH ×3 (12:00→17:50)
[2019-06-24] MEDS: ZINC SULFATE 220 MG ( 50 ) CAPSULE PO SCH (12:00)
[2019-06-24] MEDS: FAMOTIDINE 20MG TABLET PO SCH (12:00)
[2019-06-24 12:48] LABS: HEPATITIS B SURFACE ANTIGEN NEGATIVE
[2019-06-24 13:18] LABS: HEPATITIS A AB IGM NEGATIVE (NEGATIVE)
[2019-06-24] MEDS: CARVEDILOL 3.125 MG TABLET PO SCH ×2 (13:32→21:00)
[2019-06-24] MEDS: INSULIN LISPRO 100 UNITS/ML SUBCUT SCH ×2 (14:30→21:00)
[2019-06-24] MEDS: ASCORBIC ACID 500 MG TABLET PO SCH ×2 (15:45→22:00)
[2019-06-24 16:29] LABS: CREATINE KINASE 801 IU/L (26-192); CREATINE KINASE MB FRACTION 6.3 ng/mL (0.5-3.6)
[2019-06-24] MEDS: SEVELAMER CARBONATE 800 MG TABLET PO SCH (17:00)
[2019-06-24] MEDS: ENOXAPARIN 30MG/0.3ML SYR SUBCUT SCH (18:55)
[2019-06-24 20:30] VITALS: BP 154/66
[2019-06-24] MEDS ORDERED: ZOLPIDEM TARTRATE 5MG TABLET PO PRN (21:00)
[2019-06-24] MEDS: ACETAMINOPHEN 325MG TABLET PO PRN (22:00)
[2019-06-24] MEDS: TRAMADOL 50MG TABLET PO PRN (22:41)
[2019-06-25] VITALS: BP 117/63
[2019-06-25 04:00] VITALS: BP 120/63
[2019-06-25] MEDS: METOCLOPRAMIDE HCL 5MG TABLET PO SCH ×3 (06:40→18:04)
[2019-06-25] MEDS: BLOOD SUGAR DIAGNOSTIC STRIP TEST SCH ×4 (07:56→20:46)
[2019-06-25 08:00] VITALS: BP 108/72
[2019-06-25] MEDS: INSULIN LISPRO 100 UNITS/ML SUBCUT SCH ×4 (08:10→21:00)
[2019-06-25] MEDS: CARVEDILOL 3.125 MG TABLET PO SCH ×2 (09:00→20:44)
[2019-06-25] MEDS: AMLODIPINE 10MG TABLET PO SCH (09:00)
[2019-06-25] MEDS: FAMOTIDINE 20MG TABLET PO SCH (10:03)
[2019-06-25] MEDS: SEVELAMER CARBONATE 800 MG TABLET PO SCH ×3 (10:03→18:04)
[2019-06-25] MEDS: ZINC SULFATE 220 MG ( 50 ) CAPSULE PO SCH (10:03)
[2019-06-25] MEDS: ASCORBIC ACID 500 MG TABLET PO SCH ×2 (10:03→20:45)
[2019-06-25 12:03] VITALS: BP 157/71
[2019-06-25 12:16] LABS: HEMATOCRIT. 46.5 % (36.0-48.0); MEAN CORPUSCULAR HEMOGLOBIN 26.7 pg (28.0-32.0); MEAN CORPUSCULAR VOLUME 83.1 fL (81.0-99.0); MEAN PLATELET VOLUME 9.7 fl (7.4-10.4); PLATELET 230 x1000/uL (130-400); RED CELL DISTRIBUTION WIDTH 18.2 % (11.6-14.6)
[2019-06-25 12:48] LABS: PLATELET ESTIMATE NORMAL
[2019-06-25 13:52] LABS: CHLORIDE 99 mEq/L (98-107)
[2019-06-25 15:13] LABS: PHOSPHORUS 12.3 mg/dL (2.5-4.9)
[2019-06-25 16:06] VITALS: BP 172/87
[2019-06-25 20:00] VITALS: BP 174/84
[2019-06-25] MEDS: ENOXAPARIN 30MG/0.3ML SYR SUBCUT SCH (20:43)
[2019-06-25] MEDS: ACETAMINOPHEN 325MG TABLET PO PRN (20:46)
[2019-06-25] MEDS ORDERED: GENTAMICIN 80MG PREMIX 100 ML IV NR (21:00)
[2019-06-25] MEDS: TRAMADOL 50MG TABLET PO PRN (21:42)
[2019-06-25] MEDS ORDERED: VANCOMYCIN 1,000 MG in DEXT 5% WATER 250 ML IV NR (22:00)
[2019-06-26] VITALS (7 sets, daily range): BP systolic 123–166; BP diastolic 48–83
[2019-06-26] MEDS: METOCLOPRAMIDE HCL 5MG TABLET PO SCH ×3 (06:21→18:05)
[2019-06-26] MEDS: BLOOD SUGAR DIAGNOSTIC STRIP TEST SCH ×4 (06:30→21:08)
[2019-06-26] MEDS: INSULIN LISPRO 100 UNITS/ML SUBCUT SCH ×4 (07:50→21:00)
[2019-06-26] MEDS: AMLODIPINE 10MG TABLET PO SCH (09:00)
[2019-06-26] MEDS: CARVEDILOL 3.125 MG TABLET PO SCH ×2 (09:00→21:07)
[2019-06-26] MEDS: FAMOTIDINE 20MG TABLET PO SCH (09:50)
[2019-06-26] MEDS: ASCORBIC ACID 500 MG TABLET PO SCH ×2 (09:50→21:08)
[2019-06-26] MEDS: ZINC SULFATE 220 MG ( 50 ) CAPSULE PO SCH (09:50)
[2019-06-26] MEDS ORDERED: HEPARIN SODIUM 1,000 UNIT/1ML VIAL IV NR (11:30)
[2019-06-26] MEDS: SEVELAMER CARBONATE 800 MG TABLET PO SCH ×2 (12:15→18:05)
[2019-06-26 12:39] LABS: HEMATOCRIT. 47.6 % (36.0-48.0); HEMOGLOBIN. 15.7 g/dL (12.0-16.0); MEAN CORPUSCULAR HEMOGLOBIN 26.9 pg (28.0-32.0); RED BLOOD CELL COUNT 5.81 mill/uL (4.2-5.4); RED CELL DISTRIBUTION WIDTH 18.1 % (11.6-14.6)
[2019-06-26 13:03] LABS: PHOSPHORUS 8.7 mg/dL (2.5-4.9)
[2019-06-26 13:16] LABS: PLATELET 215 x1000/uL (130-400)
[2019-06-26 13:26] LABS: PLATELET ESTIMATE NORMAL
[2019-06-26] MEDS: ACETAMINOPHEN 325MG TABLET PO PRN (21:07)
[2019-06-26] MEDS: ENOXAPARIN 30MG/0.3ML SYR SUBCUT SCH (21:07)
[2019-06-27] VITALS (7 sets, daily range): BP systolic 117–165; BP diastolic 63–95
[2019-06-27] MEDS: TRAMADOL 50MG TABLET PO PRN ×2 (04:37→21:10)
[2019-06-27] MEDS: BLOOD SUGAR DIAGNOSTIC STRIP TEST SCH ×4 (06:20→20:48)
[2019-06-27] MEDS: METOCLOPRAMIDE HCL 5MG TABLET PO SCH ×3 (06:20→17:24)
[2019-06-27 06:25] LABS: BASOPHILS % 0.6 % (0.0-2.0); EOSINOPHILS % 2.9 % (0.0-5.0); HEMATOCRIT. 42.1 % (36.0-48.0); HEMOGLOBIN. 13.6 g/dL (12.0-16.0); LYMPHOCYTES % 7.8 % (20.0-50.0); MEAN CORPUSCULAR HEMOGLOBIN 26.6 pg (28.0-32.0); MEAN CORPUSCULAR VOLUME 82.4 fL (81.0-99.0); MEAN PLATELET VOLUME 8.9 fl (7.4-10.4); MONOCYTES % 10.3 % (2.0-8.0); NEUTROPHILS % 78.4 % (40.0-76.0); PLATELET 185 x1000/uL (130-400); RED BLOOD CELL COUNT 5.11 mill/uL (4.2-5.4); RED CELL DISTRIBUTION WIDTH 18.1 % (11.6-14.6)
[2019-06-27 06:49] LABS: PHOSPHORUS 9.8 mg/dL (2.5-4.9)
[2019-06-27] MEDS: INSULIN LISPRO 100 UNITS/ML SUBCUT SCH ×4 (07:15→20:49)
[2019-06-27] MEDS ORDERED: SODIUM POLYSTYRENE SULFONATE 15 G/60 ML BOT PO NR (08:30)
[2019-06-27] MEDS: ZINC SULFATE 220 MG ( 50 ) CAPSULE PO SCH (08:53)
[2019-06-27] MEDS: ASCORBIC ACID 500 MG TABLET PO SCH ×2 (08:54→20:46)
[2019-06-27] MEDS: SEVELAMER CARBONATE 800 MG TABLET PO SCH ×3 (08:54→17:24)
[2019-06-27] MEDS: AMLODIPINE 10MG TABLET PO SCH (08:54)
[2019-06-27] MEDS: CARVEDILOL 3.125 MG TABLET PO SCH ×2 (08:54→20:47)
[2019-06-27] MEDS: FAMOTIDINE 20MG TABLET PO SCH (11:40)
[2019-06-27] MEDS ORDERED: VANCOMYCIN 750 MG PREMIX 150 ML IV NR (13:00)
[2019-06-27] MEDS ORDERED: DIATR MEGLU/DIATRIZOATE SOLN 30ML PO SCH ×2 (14:45→16:45)
[2019-06-27] MEDS: ENOXAPARIN 30MG/0.3ML SYR SUBCUT SCH (18:15)
[2019-06-28] VITALS (7 sets, daily range): BP systolic 114–149; BP diastolic 67–78
[2019-06-28] MEDS: METOCLOPRAMIDE HCL 5MG TABLET PO SCH ×2 (06:23→12:20)
[2019-06-28] MEDS: BLOOD SUGAR DIAGNOSTIC STRIP TEST SCH ×2 (06:23→12:22)
[2019-06-28] MEDS: INSULIN LISPRO 100 UNITS/ML SUBCUT SCH ×2 (06:24→12:50)
[2019-06-28 07:22] LABS: HEMATOCRIT. 44.8 % (36.0-48.0); HEMOGLOBIN. 14.6 g/dL (12.0-16.0); MEAN CORPUSCULAR HEMOGLOBIN 26.6 pg (28.0-32.0); MEAN CORPUSCULAR VOLUME 81.9 fL (81.0-99.0); PLATELET 200 x1000/uL (130-400); RED BLOOD CELL COUNT 5.47 mill/uL (4.2-5.4); RED CELL DISTRIBUTION WIDTH 17.8 % (11.6-14.6)
[2019-06-28] MEDS: ASCORBIC ACID 500 MG TABLET PO SCH (08:54)
[2019-06-28] MEDS: ZINC SULFATE 220 MG ( 50 ) CAPSULE PO SCH (08:54)
[2019-06-28] MEDS: AMLODIPINE 10MG TABLET PO SCH (08:54)
[2019-06-28] MEDS: FAMOTIDINE 20MG TABLET PO SCH (08:54)
[2019-06-28] MEDS: SEVELAMER CARBONATE 800 MG TABLET PO SCH ×2 (08:55→12:50)
[2019-06-28] MEDS: CARVEDILOL 3.125 MG TABLET PO SCH (08:55)
[2019-06-28 12:44] LABS: PLATELET ESTIMATE NORMAL
[2019-06-28] MEDS: TRAMADOL 50MG TABLET PO PRN (13:19)
[2019-06-28] MEDS ORDERED: GENTAMICIN 80MG PREMIX 100 ML IV NR (15:00)
[2019-06-28] MEDS ORDERED: CEFEPIME 1,000 MG in DEXTROSE 5% WATER 50 ML IV SCH (17:00)
[2019-06-28] MEDS: ACETAMINOPHEN 325MG TABLET PO PRN (17:23)
== END 2019-06-28 17:48 | disposition short-term general hospital (02) | DRG 871 ==
LOC: ER 23:33 → 7WST 06-24 02:58 → ENRESERV 06-24 19:05 → 7WST 06-24 21:28 → 6WST 06-25 23:15
PROVIDERS: ADMIT Internal Medicine; ATTEND Internal Medicine
PROC: 5A1D70Z Performance of Urinary Filtration, Intermittent, Less than 6 Hours Per Day (ICD-10-PCS; principal; 2019-06-24)
PROC: 5A1D70Z Performance of Urinary Filtration, Intermittent, Less than 6 Hours Per Day (ICD-10-PCS; 2019-06-25)
DX: A41.9 Sepsis, unspecified organism (principal); E43 Unspecified severe protein-calorie malnutrition; G93.41 Metabolic encephalopathy; N18.6 End stage renal disease; J18.9 Pneumonia, unspecified organism; E87.2 Acidosis; I50.30 Unspecified diastolic (congestive) heart failure; I13.2 Hypertensive heart and chronic kidney disease with heart failure and with stage 5 chronic kidney disease, or end stage renal disease; D63.8 Anemia in other chronic diseases classified elsewhere; Z20.828 Contact with and (suspected) exposure to other viral communicable diseases; E78.00 Pure hypercholesterolemia, unspecified; E11.22 Type 2 diabetes mellitus with diabetic chronic kidney disease; K80.20 Calculus of gallbladder without cholecystitis without obstruction; E83.39 Other disorders of phosphorus metabolism; G89.29 Other chronic pain; E11.649 Type 2 diabetes mellitus with hypoglycemia without coma; E86.0 Dehydration; E87.5 Hyperkalemia; Z99.2 Dependence on renal dialysis; Z79.84 Long term (current) use of oral hypoglycemic drugs; Z79.4 Long term (current) use of insulin; Z68.27 Body mass index [BMI] 27.0-27.9, adult; Z79.899 Other long term (current) drug therapy; Z91.81 History of falling; E78.5 Hyperlipidemia, unspecified; Z82.49 Family history of ischemic heart disease and other diseases of the circulatory system; Z83.3 Family history of diabetes mellitus
CPT/HCPCS: 36415; 71045; 74176; 80048; 80053; 80170; 80202; 82533; 82550; 82553; 82962; 83036; 83605; 83615; 83735; 83880; 84100; 84145; 84443; 84484; 85025; 85379; 85384; 86705; 86709; 86803; 87340; 87635; 93005; 93970; 96365; 96375; 96376; 97116; 97162; 97166; 99285; J0610; J0692; J1580; J1644; J1650; J1815; J2405; J3370; J7060; J8597; Q9963; U0003

== ENCOUNTER 2019-07-06 20:03 | Emergency (ER) | payer OTHER, MEDICARE ==
[~2019-07-06] VITALS: Ht 167.6 cm; Wt 60.0 kg
[2019-07-06 20:11] VITALS: BP 101/60
[2019-07-06] MEDS ORDERED: TRAMADOL 50MG TABLET PO ONE (20:45)
== END 2019-07-07 01:02 | disposition home or self-care (01) ==
LOC: ER 20:03
DX: M79.671 Pain in right foot (principal); M25.571 Pain in right ankle and joints of right foot; I11.0 Hypertensive heart disease with heart failure; I10 Essential (primary) hypertension; Z98.890 Other specified postprocedural states; Z79.4 Long term (current) use of insulin; Z79.899 Other long term (current) drug therapy
CPT/HCPCS: 73610; 73630; 73700; 93971; 99285

== ENCOUNTER 2019-08-16 12:49 | Emergency (ER) | payer MEDICARE, BC ==
[~2019-08-16] VITALS: Ht 170.2 cm; Wt 68.0 kg
[2019-08-16] MEDS ORDERED: MORPHINE SULFATE 4 MG/ML CPJ (NOT FOR IM USE) IV STA (13:27)
[2019-08-16] MEDS ORDERED: ONDANSETRON HCL 4MG/2ML INJ IV STA (13:27)
[2019-08-16 14:28] LABS: HEMOGLOBIN. 9.1 g/dL (12.0-16.0); MEAN CORPUSCULAR HEMOGLOBIN 26.5 pg (28.0-32.0); MEAN CORPUSCULAR VOLUME 79.1 fL (81.0-99.0); MEAN PLATELET VOLUME 7.9 fl (7.4-10.4); PLATELET 427 x1000/uL (130-400); RED BLOOD CELL COUNT 3.42 mill/uL (4.2-5.4); RED CELL DISTRIBUTION WIDTH 19.4 % (11.6-14.6)
[2019-08-16 14:37] LABS: CHLORIDE 99 mEq/L (98-107)
[2019-08-16 14:41] LABS: ETHANOL BLOOD < 10 mg/dL
[2019-08-16 14:49] LABS: PLATELET ESTIMATE INCREASED
[2019-08-16] MEDS ORDERED: FUROSEMIDE 100MG/10ML VIAL IV STA (14:57)
[2019-08-16] MEDS ORDERED: ALBUTEROL (0.083%) 2.5MG/3ML NEB HHN ONE (15:00)
[2019-08-16] MEDS ORDERED: INSULIN REGULAR (HUMULIN R) 300UNITS/3ML IV ONE (15:00)
[2019-08-16] MEDS ORDERED: DEXTROSE 50% WATER 50ML SYRINGE IV ONE (15:00)
[2019-08-16] MEDS ORDERED: CALCIUM GLUCONATE 100MG/ML 10ML VIAL IV ONE (15:00)
[2019-08-16] MEDS ORDERED: FUROSEMIDE 100MG/10ML VIAL ONE (15:47)
[2019-08-16 19:32] LABS: CLARITY URINE TURBID (CLEAR); COLOR URINE DARK YELLOW (YELLOW); KETONES URINE 1+ (NEGATIVE); LEUKOCYTE ESTERASE URINE 3+ (NEGATIVE); NITRITE URINE NEGATIVE (NEGATIVE); OCCULT BLOOD URINE 1+ (NEGATIVE); PH URINE 8.5 (4.5-8.0); PROTEIN URINE 4+ (NEGATIVE); SPECIFIC GRAVITY URINE 1.019 (1.005-1.030); UROBILINOGEN URINE 0.2 E.U./dL (0.2-1.0)
[2019-08-16 20:18] LABS: PHENCYCLIDINE URINE SCREEN NEGATIVE (NEGATIVE)
[2019-08-16 20:19] LABS: *AMPHETAMINES SCREEN URINE NEGATIVE (NEGATIVE); *BARBITURATES SCREEN URINE NEGATIVE (NEGATIVE); *BENZODIAZEPINES SCREEN URINE NEGATIVE (NEGATIVE); *COCAINE SCREEN URINE NEGATIVE (NEGATIVE); CANNABINOID URINE SCREEN NEGATIVE (NEGATIVE); METHADONE URINE SCREEN NEGATIVE (NEGATIVE); OPIATES URINE SCREEN NEGATIVE (NEGATIVE)
[2019-08-16 21:30] VITALS: BP 96/50
== END 2019-08-16 22:15 | disposition short-term general hospital (02) ==
LOC: ER 12:49 → CANBEDREQ 17:00 → ER 22:15
DX: I11.0 Hypertensive heart disease with heart failure (principal); I50.9 Heart failure, unspecified; E11.9 Type 2 diabetes mellitus without complications; E87.5 Hyperkalemia; D72.829 Elevated white blood cell count, unspecified; D64.9 Anemia, unspecified; S82.891G Other fracture of right lower leg, subsequent encounter for closed fracture with delayed healing; R26.2 Difficulty in walking, not elsewhere classified; Z87.81 Personal history of (healed) traumatic fracture; X58.XXXD Exposure to other specified factors, subsequent encounter; Z79.4 Long term (current) use of insulin; Z79.899 Other long term (current) drug therapy
CPT/HCPCS: 36415; 80053; 80305; 80320; 81003; 82962; 83605; 83690; 83880; 84484; 85025; 85379; 87086; 93005; 93970; 96374; 96375; 99285; J0610; J1815; J1940; J2270; J2405; G0480

== ENCOUNTER 2019-12-12 11:23 | Inpatient (IN) | payer MEDICARE, BC ==
[~2019-12-12] VITALS: Ht 154.9 cm; Wt 69.6 kg
[2019-12-12 14:29] LABS: HEMATOCRIT. 35.9 % (36.0-48.0); HEMOGLOBIN. 11.6 g/dL (12.0-16.0); MEAN CORPUSCULAR HEMOGLOBIN 27.2 pg (28.0-32.0); MEAN PLATELET VOLUME 9.8 fl (7.4-10.4); PLATELET 130 x1000/uL (130-400); RED BLOOD CELL COUNT 4.28 mill/uL (4.2-5.4); RED CELL DISTRIBUTION WIDTH 17.6 % (11.6-14.6)
[2019-12-12 14:32] LABS: CHLORIDE 102 mEq/L (98-107)
[2019-12-12 16:21] LABS: PLATELET ESTIMATE NORMAL
[2019-12-12 16:37] LABS: INR 1.1; PARTIAL THROMBOPLASTIN TIME 33.7 sec (23.4-31.0); PROTHROMBIN TIME 11.9 sec (9.6-11.0)
[2019-12-12] MEDS ORDERED: PANTOPRAZOLE 80 MG in SODIUM CHLORIDE 0.9% 100 ML IV SCH ×2 (16:45→18:45)
[2019-12-12] MEDS ORDERED: DOCUSATE SODIUM 100MG CAPSULE PO PRN (18:45)
[2019-12-12] MEDS ORDERED: ACETAMINOPHEN 325MG TABLET PO PRN ×2 (18:45)
[2019-12-12] MEDS ORDERED: GUAIFENESIN 200MG/10ML SUGAR FREE UDC PO PRN (18:45)
[2019-12-12] MEDS ORDERED: DEXTROSE 50% WATER 50ML SYRINGE IV PRN (18:45)
[2019-12-12] MEDS ORDERED: ONDANSETRON HCL 4MG/2ML INJ IV PRN (18:45)
[2019-12-12] MEDS ORDERED: MAGNESIUM/ALUMINUM HYDROXIDE/SIMETHICONE 30ML UDC PO PRN (18:45)
[2019-12-12] MEDS ORDERED: NITROGLYCERIN 0.4MG TABLET SL SL PRN (18:45)
[2019-12-12] MEDS ORDERED: DIPHENHYDRAMINE 50MG/ML VIAL IV PRN (18:45)
[2019-12-12] MEDS ORDERED: IPRATROPIUM/ALBUTEROL 0.5-3(2.5)MG/3ML NEB NEB PRN (18:45)
[2019-12-12] MEDS ORDERED: SODIUM POLYSTYRENE SULFONATE 15 G/60 ML BOT PO ONE (19:00)
[2019-12-12] MEDS: AMLODIPINE 10MG TABLET PO SCH (19:10)
[2019-12-12] MEDS: CLONIDINE 0.1MG TABLET PO PRN (20:31)
[2019-12-12] MEDS ORDERED: ZOLPIDEM TARTRATE 5MG TABLET PO PRN (21:00)
[2019-12-12] MEDS: TRAMADOL 50MG TABLET PO PRN (21:29)
[2019-12-12 23:00] VITALS: BP 217/108
[2019-12-13] VITALS (7 sets, daily range): BP systolic 159–217; BP diastolic 75–108
[2019-12-13] MEDS: HYDRALAZINE HCL 50MG TABLET PO SCH ×4 (00:21→22:25)
[2019-12-13 00:29] LABS: CREATINE KINASE MB FRACTION 8.8 ng/mL (0.5-3.6)
[2019-12-13] MEDS: CLONIDINE 0.1MG TABLET PO PRN ×3 (03:40→17:09)
[2019-12-13] MEDS: TRAMADOL 50MG TABLET PO PRN ×3 (03:56→17:09)
[2019-12-13] MEDS: PANTOPRAZOLE 80 MG in SODIUM CHLORIDE 0.9% 100 ML IV SCH ×2 (05:11→17:09)
[2019-12-13] MEDS: CARVEDILOL 3.125 MG TABLET PO SCH ×2 (05:57→18:07)
[2019-12-13] MEDS: BLOOD SUGAR DIAGNOSTIC STRIP TEST SCH ×4 (06:54→21:00)
[2019-12-13 07:35] LABS: CREATINE KINASE MB FRACTION 6.7 ng/mL (0.5-3.6)
[2019-12-13 07:45] LABS: BASOPHILS % 1.3 % (0.0-2.0); EOSINOPHILS % 7.7 % (0.0-5.0); HEMATOCRIT. 34.9 % (36.0-48.0); HEMOGLOBIN. 11.3 g/dL (12.0-16.0); LYMPHOCYTES % 20.9 % (20.0-50.0); MEAN CORPUSCULAR HEMOGLOBIN 27.1 pg (28.0-32.0); MEAN CORPUSCULAR VOLUME 83.3 fL (81.0-99.0); MONOCYTES % 9.1 % (2.0-8.0); PLATELET 139 x1000/uL (130-400); RED BLOOD CELL COUNT 4.18 mill/uL (4.2-5.4); RED CELL DISTRIBUTION WIDTH 17.3 % (11.6-14.6)
[2019-12-13] MEDS: INSULIN LISPRO 100 UNITS/ML SUBCUT SCH ×4 (07:50→21:00)
[2019-12-13 08:08] LABS: CHLORIDE 106 mEq/L (98-107)
[2019-12-13 08:46] LABS: PHOSPHORUS 8.9 mg/dL (2.5-4.9)
[2019-12-13] MEDS: AMLODIPINE 10MG TABLET PO SCH (09:01)
[2019-12-13] MEDS: SEVELAMER CARBONATE 800 MG TABLET PO SCH ×2 (13:16→18:07)
[2019-12-13] MEDS ORDERED: SORBITOL 70% SOLN 30ML PO NR ×2 (16:00→20:00)
[2019-12-14 00:20] VITALS: BP 193/88
[2019-12-14] MEDS: PANTOPRAZOLE 80 MG in SODIUM CHLORIDE 0.9% 100 ML IV SCH (01:15)
== END 2019-12-14 02:00 | disposition short-term general hospital (02) | DRG 377 ==
LOC: ER 11:55 → 6WST 18:17 → EDBEDREQ 18:29 → ENRESERV 20:16
PROVIDERS: ADMIT Internal Medicine; ATTEND Internal Medicine
DX: K92.1 Melena (principal); N18.6 End stage renal disease; D62 Acute posthemorrhagic anemia; I13.2 Hypertensive heart and chronic kidney disease with heart failure and with stage 5 chronic kidney disease, or end stage renal disease; I16.1 Hypertensive emergency; K52.9 Noninfective gastroenteritis and colitis, unspecified; E11.22 Type 2 diabetes mellitus with diabetic chronic kidney disease; E78.5 Hyperlipidemia, unspecified; E83.39 Other disorders of phosphorus metabolism; E87.5 Hyperkalemia; R74.01 Elevation of levels of liver transaminase levels; E11.51 Type 2 diabetes mellitus with diabetic peripheral angiopathy without gangrene; Z20.828 Contact with and (suspected) exposure to other viral communicable diseases; F17.200 Nicotine dependence, unspecified, uncomplicated; I50.9 Heart failure, unspecified; I87.8 Other specified disorders of veins; Z79.899 Other long term (current) drug therapy; Z86.718 Personal history of other venous thrombosis and embolism; Z89.512 Acquired absence of left leg below knee; Z90.49 Acquired absence of other specified parts of digestive tract; Z99.2 Dependence on renal dialysis; Z79.4 Long term (current) use of insulin; R74.8 Abnormal levels of other serum enzymes
CPT/HCPCS: 36415; 71045; 74176; 76700; 80053; 80061; 82270; 82550; 82553; 82962; 83036; 83605; 83735; 84100; 84484; 85025; 86850; 86900; 87015; 87045; 87426; 87427; 87449; 89055; 93005; 93970; 99285; A6261; C9113; J7050

== ENCOUNTER 2020-03-20 10:15 | Inpatient (IN) | payer BC, MEDICARE ==
[~2020-03-20] VITALS: Ht 154.9 cm; Wt 55.1 kg
[~2020-03-20 10:15] MED LIST changes: -ISOS60TA4 PO; +ISOS60TA76 PO
[2020-03-20 12:00] LABS: BASOPHILS % 0.7 % (0.0-2.0); EOSINOPHILS % 4.2 % (0.0-5.0); HEMATOCRIT. 29.2 % (36.0-48.0); HEMOGLOBIN. 9.5 g/dL (12.0-16.0); LYMPHOCYTES % 13.3 % (20.0-50.0); MEAN CORPUSCULAR HEMOGLOBIN 26.2 pg (28.0-32.0); MEAN PLATELET VOLUME 9.2 fl (7.4-10.4); MONOCYTES % 10.5 % (2.0-8.0); NEUTROPHILS % 71.3 % (40.0-76.0); PLATELET 196 x1000/uL (130-400); RED BLOOD CELL COUNT 3.61 mill/uL (4.2-5.4); RED CELL DISTRIBUTION WIDTH 17.9 % (11.6-14.6)
[2020-03-20 12:01] LABS: CHLORIDE 101 mEq/L (98-107)
[2020-03-20 12:05] LABS: INR 1.2; PROTHROMBIN TIME 12.7 sec (9.6-11.0)
[2020-03-20] MEDS ORDERED: VANCOMYCIN 1 G PREMIX 200 ML IV ONE (12:30)
[2020-03-20] MEDS ORDERED: PIPERACILLIN/TAZ 3.375G PREMIX 50 ML IV ONE (12:30)
[2020-03-20] MEDS ORDERED: ENOXAPARIN 40MG/0.4ML SYR SUBCUT SCH (13:30)
[2020-03-20] MEDS ORDERED: DEXTROSE 50% WATER 50ML SYRINGE IV PRN (13:30)
[2020-03-20] MEDS ORDERED: PIPERACILLIN/TAZ 3.375G PREMIX 50 ML IV SCH (13:30)
[2020-03-20] MEDS ORDERED: MAGNESIUM/ALUMINUM HYDROXIDE/SIMETHICONE 30ML UDC PO PRN (13:30)
[2020-03-20] MEDS ORDERED: NITROGLYCERIN 0.4MG TABLET SL SL PRN (13:30)
[2020-03-20] MEDS ORDERED: ACETAMINOPHEN 325MG TABLET PO PRN (13:30)
[2020-03-20] MEDS ORDERED: IPRATROPIUM/ALBUTEROL 0.5-3(2.5)MG/3ML NEB NEB PRN (13:30)
[2020-03-20] MEDS ORDERED: DOCUSATE SODIUM 100MG CAPSULE PO PRN (13:30)
[2020-03-20] MEDS ORDERED: GUAIFENESIN 200MG/10ML SUGAR FREE UDC PO PRN (13:30)
[2020-03-20] MEDS ORDERED: ZOLPIDEM TARTRATE 5MG TABLET PO PRN (13:30)
[2020-03-20] MEDS ORDERED: ALBUTEROL 6.7GM HFA INHALER ORI PRN (13:30)
[2020-03-20] MEDS: TRAMADOL 50MG TABLET PO PRN ×2 (14:35→21:40)
[2020-03-20] MEDS: ENOXAPARIN 30MG/0.3ML SYR SUBCUT SCH (15:41)
[2020-03-20] MEDS: FAMOTIDINE 20MG TABLET PO SCH (15:41)
[2020-03-20] MEDS: ALBUTEROL 6.7GM HFA INHALER ORI SCH ×2 (15:55→21:00)
[2020-03-20 16:02] LABS: CREATINE KINASE 402 IU/L (26-192)
[2020-03-20 16:03] LABS: CREATINE KINASE MB FRACTION 4.8 ng/mL (0.5-3.6)
[2020-03-20 20:00] VITALS: BP 85/45
[2020-03-20] MEDS: INSULIN LISPRO 100 UNITS/ML SUBCUT SCH (21:00)
[2020-03-20] MEDS: ASCORBIC ACID 500 MG TABLET PO SCH (21:33)
[2020-03-20] MEDS: SEVELAMER CARBONATE 800 MG TABLET PO SCH (21:33)
[2020-03-20] MEDS: BLOOD SUGAR DIAGNOSTIC STRIP TEST SCH (21:48)
[2020-03-20] MEDS ORDERED: LORAZEPAM 2MG/ML CPJ IM PRN (23:30)
[2020-03-21] VITALS: BP 92/54
[2020-03-21] MEDS: PIPERACILLIN/TAZOBACTAM 2.25 G in DEXTROSE 5% WATER 50 ML IV SCH ×2 (01:45→17:43)
[2020-03-21 02:29] LABS: CREATINE KINASE 360 IU/L (26-192)
[2020-03-21 02:30] LABS: CREATINE KINASE MB FRACTION 4.7 ng/mL (0.5-3.6)
[2020-03-21 04:00] VITALS: BP_SYST 121; BP_SYST 99; BP_DIAS 53; BP_DIAS 71
[2020-03-21 04:53] VITALS: BP 101/53
[2020-03-21] MEDS: SEVELAMER CARBONATE 800 MG TABLET PO SCH ×3 (06:11→17:48)
[2020-03-21] MEDS: BLOOD SUGAR DIAGNOSTIC STRIP TEST SCH ×4 (06:34→21:26)
[2020-03-21] MEDS: INSULIN LISPRO 100 UNITS/ML SUBCUT SCH ×4 (07:10→21:00)
[2020-03-21 08:46] LABS: BASOPHILS % 1.1 % (0.0-2.0); EOSINOPHILS % 5.3 % (0.0-5.0); HEMATOCRIT. 28.5 % (36.0-48.0); HEMOGLOBIN. 9.2 g/dL (12.0-16.0); LYMPHOCYTES % 18.7 % (20.0-50.0); MEAN CORPUSCULAR VOLUME 80.7 fL (81.0-99.0); MEAN PLATELET VOLUME 9.7 fl (7.4-10.4); MONOCYTES % 11.7 % (2.0-8.0); NEUTROPHILS % 63.2 % (40.0-76.0); PLATELET 157 x1000/uL (130-400); RED BLOOD CELL COUNT 3.53 mill/uL (4.2-5.4); RED CELL DISTRIBUTION WIDTH 17.8 % (11.6-14.6)
[2020-03-21] MEDS: FAMOTIDINE 20MG TABLET PO SCH (09:00)
[2020-03-21] MEDS: CHOLECALCIFEROL (D3) 1000 UNIT TABLET PO SCH (09:11)
[2020-03-21] MEDS: ASCORBIC ACID 500 MG TABLET PO SCH ×2 (09:11→21:26)
[2020-03-21] MEDS: ZINC SULFATE 220 MG ( 50 ) CAPSULE PO SCH (09:11)
[2020-03-21 09:17] LABS: CHLORIDE 101 mEq/L (98-107)
[2020-03-21 09:40] LABS: PHOSPHORUS 10.3 mg/dL (2.5-4.9)
[2020-03-21 12:18] VITALS: BP 129/65
[2020-03-21] MEDS: TRAMADOL 50MG TABLET PO PRN (12:47)
[2020-03-21 16:31] VITALS: BP 125/55
[2020-03-21] MEDS: ENOXAPARIN 30MG/0.3ML SYR SUBCUT SCH (16:34)
[2020-03-21] MEDS ORDERED: VANCOMYCIN 750 MG PREMIX 150 ML IV NR (18:00)
[2020-03-21 20:00] VITALS: BP 154/76
[2020-03-21] MEDS: EPOETIN ALFA-EPBX 10,000 UNIT/ML VIAL SUBCUT SCH (21:26)
[2020-03-22] VITALS: BP 163/71
[2020-03-22] MEDS: PIPERACILLIN/TAZOBACTAM 2.25 G in DEXTROSE 5% WATER 50 ML IV SCH ×2 (00:43→12:22)
[2020-03-22] MEDS: ALBUTEROL (0.083%) 2.5MG/3ML NEB HHN SCH ×4 (02:30→21:55)
[2020-03-22 04:00] VITALS: BP 152/65
[2020-03-22] MEDS: INSULIN LISPRO 100 UNITS/ML SUBCUT SCH ×4 (06:17→21:00)
[2020-03-22] MEDS: BLOOD SUGAR DIAGNOSTIC STRIP TEST SCH ×4 (06:17→21:30)
[2020-03-22 07:42] LABS: BASOPHILS % 0.4 % (0.0-2.0); HEMATOCRIT. 36.1 % (36.0-48.0); HEMOGLOBIN. 11.4 g/dL (12.0-16.0); LYMPHOCYTES % 7.4 % (20.0-50.0); MEAN CORPUSCULAR VOLUME 82.4 fL (81.0-99.0); MEAN PLATELET VOLUME 9.6 fl (7.4-10.4); MONOCYTES % 8.9 % (2.0-8.0); NEUTROPHILS % 79.3 % (40.0-76.0); PLATELET 197 x1000/uL (130-400); RED BLOOD CELL COUNT 4.38 mill/uL (4.2-5.4); RED CELL DISTRIBUTION WIDTH 18.1 % (11.6-14.6)
[2020-03-22 08:00] VITALS: BP 156/68
[2020-03-22] MEDS: SEVELAMER CARBONATE 800 MG TABLET PO SCH ×3 (08:23→17:40)
[2020-03-22] MEDS: CHOLECALCIFEROL (D3) 1000 UNIT TABLET PO SCH (08:24)
[2020-03-22] MEDS: FAMOTIDINE 20MG TABLET PO SCH (08:24)
[2020-03-22] MEDS: ZINC SULFATE 220 MG ( 50 ) CAPSULE PO SCH (08:24)
[2020-03-22] MEDS: ASCORBIC ACID 500 MG TABLET PO SCH ×2 (08:24→21:30)
[2020-03-22 08:51] LABS: PHOSPHORUS 11.4 mg/dL (2.5-4.9)
[2020-03-22] MEDS ORDERED: POTASSIUM CHLORIDE 20MEQ TABLET SR PO SCH (10:00)
[2020-03-22 12:00] VITALS: BP 143/72
[2020-03-22] MEDS: ONDANSETRON HCL 4MG/2ML INJ IV PRN (12:38)
[2020-03-22] MEDS: ENOXAPARIN 30MG/0.3ML SYR SUBCUT SCH (14:15)
[2020-03-22 16:00] VITALS: BP 126/55
[2020-03-22 20:07] VITALS: BP 156/89
[2020-03-23] VITALS: BP 173/86
[2020-03-23] MEDS ORDERED: HEPARIN SODIUM 1,000 UNIT/1ML VIAL IV NR (02:15)
[2020-03-23] MEDS: PIPERACILLIN/TAZOBACTAM 2.25 G in DEXTROSE 5% WATER 50 ML IV SCH ×2 (03:29→13:18)
[2020-03-23] MEDS: ALBUTEROL (0.083%) 2.5MG/3ML NEB HHN SCH ×4 (03:35→21:18)
[2020-03-23 04:00] VITALS: BP 168/75
[2020-03-23 06:25] LABS: BASOPHILS % 0.4 % (0.0-2.0); EOSINOPHILS % 3.5 % (0.0-5.0); HEMATOCRIT. 35.9 % (36.0-48.0); HEMOGLOBIN. 11.4 g/dL (12.0-16.0); LYMPHOCYTES % 7.5 % (20.0-50.0); MEAN CORPUSCULAR HEMOGLOBIN 25.8 pg (28.0-32.0); MEAN CORPUSCULAR VOLUME 80.9 fL (81.0-99.0); MEAN PLATELET VOLUME 9.4 fl (7.4-10.4); MONOCYTES % 8.9 % (2.0-8.0); NEUTROPHILS % 79.7 % (40.0-76.0); PLATELET 219 x1000/uL (130-400); RED BLOOD CELL COUNT 4.43 mill/uL (4.2-5.4); RED CELL DISTRIBUTION WIDTH 17.7 % (11.6-14.6)
[2020-03-23] MEDS: BLOOD SUGAR DIAGNOSTIC STRIP TEST SCH ×4 (07:30→20:16)
[2020-03-23] MEDS: INSULIN LISPRO 100 UNITS/ML SUBCUT SCH ×4 (07:40→20:16)
[2020-03-23 08:00] VITALS: BP 190/79
[2020-03-23] MEDS: ZINC SULFATE 220 MG ( 50 ) CAPSULE PO SCH (08:28)
[2020-03-23] MEDS: SEVELAMER CARBONATE 800 MG TABLET PO SCH ×3 (08:28→17:50)
[2020-03-23] MEDS: CHOLECALCIFEROL (D3) 1000 UNIT TABLET PO SCH (08:29)
[2020-03-23] MEDS: ASCORBIC ACID 500 MG TABLET PO SCH ×2 (08:29→20:16)
[2020-03-23] MEDS: FAMOTIDINE 20MG TABLET PO SCH (08:29)
[2020-03-23] MEDS: CLONIDINE 0.1MG TABLET PO PRN ×2 (08:41→18:40)
[2020-03-23] MEDS ORDERED: POTASSIUM CHLORIDE 20MEQ TABLET SR PO SCH (10:00)
[2020-03-23] MEDS: ENOXAPARIN 30MG/0.3ML SYR SUBCUT SCH (15:37)
[2020-03-23] MEDS: TRAMADOL 50MG TABLET PO PRN (15:50)
[2020-03-23 16:00] VITALS: BP 170/72
[2020-03-23 20:00] VITALS: BP 169/81
[2020-03-24] MEDS: PIPERACILLIN/TAZOBACTAM 2.25 G in DEXTROSE 5% WATER 50 ML IV SCH ×2 (00:50→12:19)
[2020-03-24 04:00] VITALS: BP 156/70
[2020-03-24] MEDS: ACETAMINOPHEN 325MG TABLET PO PRN (05:42)
[2020-03-24] MEDS: CLONIDINE 0.1MG TABLET PO PRN (05:42)
[2020-03-24] MEDS: INSULIN LISPRO 100 UNITS/ML SUBCUT SCH ×3 (07:22→21:00)
[2020-03-24] MEDS: BLOOD SUGAR DIAGNOSTIC STRIP TEST SCH ×3 (07:22→21:40)
[2020-03-24] MEDS: SEVELAMER CARBONATE 800 MG TABLET PO SCH ×3 (07:40→21:44)
[2020-03-24 08:00] VITALS: BP 123/59
[2020-03-24 08:05] LABS: BASOPHILS % 1.1 % (0.0-2.0); EOSINOPHILS % 1.9 % (0.0-5.0); HEMATOCRIT. 32.5 % (36.0-48.0); HEMOGLOBIN. 10.4 g/dL (12.0-16.0); LYMPHOCYTES % 7.2 % (20.0-50.0); MEAN CORPUSCULAR HEMOGLOBIN 25.8 pg (28.0-32.0); MEAN CORPUSCULAR VOLUME 80.7 fL (81.0-99.0); MEAN PLATELET VOLUME 9.5 fl (7.4-10.4); MONOCYTES % 9.6 % (2.0-8.0); NEUTROPHILS % 80.2 % (40.0-76.0); PLATELET 209 x1000/uL (130-400); RED BLOOD CELL COUNT 4.03 mill/uL (4.2-5.4); RED CELL DISTRIBUTION WIDTH 17.7 % (11.6-14.6)
[2020-03-24] MEDS: ASCORBIC ACID 500 MG TABLET PO SCH ×2 (08:25→21:43)
[2020-03-24] MEDS: FAMOTIDINE 20MG TABLET PO SCH (08:25)
[2020-03-24] MEDS: ZINC SULFATE 220 MG ( 50 ) CAPSULE PO SCH (08:25)
[2020-03-24] MEDS: CHOLECALCIFEROL (D3) 1000 UNIT TABLET PO SCH (08:25)
[2020-03-24 09:52] LABS: PHOSPHORUS 8.7 mg/dL (2.5-4.9)
[2020-03-24] MEDS ORDERED: REGADENOSON 0.4 MG/5 ML IV NR (10:00)
[2020-03-24] MEDS ORDERED: REGADENOSON 0.4 MG/5 ML IV ONE (10:35)
[2020-03-24] MEDS: AMLODIPINE 5MG TABLET PO SCH ×2 (10:45→21:43)
[2020-03-24] MEDS ORDERED: POTASSIUM CHLORIDE 20MEQ/PACKET PO NR (10:45)
[2020-03-24 12:00] VITALS: BP 160/70
[2020-03-24] MEDS ORDERED: ALBUTEROL (0.083%) 2.5MG/3ML NEB HHN PRN ×2 (12:00)
[2020-03-24] MEDS: ENOXAPARIN 30MG/0.3ML SYR SUBCUT SCH (14:18)
[2020-03-24 16:00] VITALS: BP 170/80
[2020-03-24] MEDS ORDERED: VANCOMYCIN 750 MG PREMIX 150 ML IV NR (16:00)
[2020-03-24 20:00] VITALS: BP 165/77
[2020-03-24] MEDS: EPOETIN ALFA-EPBX 10,000 UNIT/ML VIAL SUBCUT SCH (22:19)
[2020-03-25] VITALS: BP 160/74
[2020-03-25] MEDS: PIPERACILLIN/TAZOBACTAM 2.25 G in DEXTROSE 5% WATER 50 ML IV SCH ×2 (00:23→12:41)
[2020-03-25 04:00] VITALS: BP 142/64
[2020-03-25 06:02] LABS: HEMOGLOBIN. 10.9 g/dL (12.0-16.0); MEAN CORPUSCULAR HEMOGLOBIN 25.9 pg (28.0-32.0); MEAN CORPUSCULAR VOLUME 80.6 fL (81.0-99.0); MEAN PLATELET VOLUME 9.2 fl (7.4-10.4); PLATELET 184 x1000/uL (130-400); RED BLOOD CELL COUNT 4.22 mill/uL (4.2-5.4)
[2020-03-25 06:33] LABS: PHOSPHORUS 8.8 mg/dL (2.5-4.9)
[2020-03-25] MEDS: INSULIN LISPRO 100 UNITS/ML SUBCUT SCH ×4 (06:48→21:00)
[2020-03-25] MEDS: BLOOD SUGAR DIAGNOSTIC STRIP TEST SCH ×4 (06:48→21:00)
[2020-03-25] MEDS: SEVELAMER CARBONATE 800 MG TABLET PO SCH ×3 (06:49→17:20)
[2020-03-25 08:00] VITALS: BP 150/69
[2020-03-25] MEDS: CHOLECALCIFEROL (D3) 1000 UNIT TABLET PO SCH (08:49)
[2020-03-25] MEDS: ZINC SULFATE 220 MG ( 50 ) CAPSULE PO SCH (08:49)
[2020-03-25] MEDS: ASCORBIC ACID 500 MG TABLET PO SCH ×2 (08:49→20:36)
[2020-03-25] MEDS: FAMOTIDINE 20MG TABLET PO SCH (08:50)
[2020-03-25] MEDS: AMLODIPINE 5MG TABLET PO SCH ×2 (08:50→20:38)
[2020-03-25 12:00] VITALS: BP 140/61
[2020-03-25] MEDS: CARVEDILOL 6.25 MG TABLET PO SCH ×2 (15:58→20:36)
[2020-03-25] MEDS: ENOXAPARIN 30MG/0.3ML SYR SUBCUT SCH (15:58)
[2020-03-25 16:00] VITALS: BP 154/71
[2020-03-25 17:22] LABS: PLATELET ESTIMATE NORMAL
[2020-03-25] MEDS: TRAMADOL 50MG TABLET PO PRN (17:53)
[2020-03-25 20:00] VITALS: BP 141/67
[2020-03-25] MEDS ORDERED: VANCOMYCIN 500 MG PREMIX 100 ML IV NR (20:00)
[2020-03-25] MEDS: CEFEPIME 1,000 MG in DEXTROSE 5% WATER 50 ML IV SCH (20:34)
[2020-03-25] MEDS: METRONIDAZOLE 500 MG PREMIX 100 ML IV SCH (20:35)
[2020-03-25] MEDS: VANCOMYCIN HCL 1000 MG/20 ML ORAL PO SCH (20:35)
[2020-03-25] MEDS ORDERED: HEPARIN SODIUM 1,000 UNIT/1ML VIAL IV NR (23:15)
[2020-03-26] VITALS: BP 127/71
[2020-03-26] MEDS: VANCOMYCIN HCL 1000 MG/20 ML ORAL PO SCH ×4 (01:36→18:00)
[2020-03-26] MEDS: BLOOD SUGAR DIAGNOSTIC STRIP TEST SCH ×4 (07:00→21:32)
[2020-03-26] MEDS: INSULIN LISPRO 100 UNITS/ML SUBCUT SCH ×4 (07:00→21:00)
[2020-03-26 07:36] LABS: PHOSPHORUS 5.4 mg/dL (2.5-4.9)
[2020-03-26 07:44] LABS: HEMATOCRIT. 32.8 % (36.0-48.0); HEMOGLOBIN. 10.6 g/dL (12.0-16.0); MEAN CORPUSCULAR HEMOGLOBIN 25.9 pg (28.0-32.0); MEAN CORPUSCULAR VOLUME 80.1 fL (81.0-99.0); MEAN PLATELET VOLUME 9.3 fl (7.4-10.4); PLATELET 157 x1000/uL (130-400); RED CELL DISTRIBUTION WIDTH 17.9 % (11.6-14.6)
[2020-03-26 09:00] VITALS: BP 176/66
[2020-03-26] MEDS: FAMOTIDINE 20MG TABLET PO SCH (09:41)
[2020-03-26] MEDS: ASCORBIC ACID 500 MG TABLET PO SCH ×2 (09:41→21:30)
[2020-03-26] MEDS: SEVELAMER CARBONATE 800 MG TABLET PO SCH ×3 (09:41→18:58)
[2020-03-26] MEDS: CHOLECALCIFEROL (D3) 1000 UNIT TABLET PO SCH (09:41)
[2020-03-26] MEDS: AMLODIPINE 5MG TABLET PO SCH ×2 (09:42→21:31)
[2020-03-26] MEDS: CARVEDILOL 6.25 MG TABLET PO SCH ×2 (09:42→21:31)
[2020-03-26] MEDS: ZINC SULFATE 220 MG ( 50 ) CAPSULE PO SCH (09:43)
[2020-03-26] MEDS: METRONIDAZOLE 500 MG PREMIX 100 ML IV SCH ×2 (09:43→21:32)
[2020-03-26 12:00] VITALS: BP 160/71
[2020-03-26 14:16] LABS: PLATELET ESTIMATE NORMAL
[2020-03-26] MEDS ORDERED: POTASSIUM CHLORIDE 20MEQ/PACKET PO NR (16:30)
[2020-03-26] MEDS ORDERED: VANCOMYCIN 750 MG PREMIX 150 ML IV NR (18:30)
[2020-03-26] MEDS: ENOXAPARIN 30MG/0.3ML SYR SUBCUT SCH (18:50)
[2020-03-26] MEDS: CEFEPIME 1,000 MG in DEXTROSE 5% WATER 50 ML IV SCH (18:51)
[2020-03-26 20:00] VITALS: BP 149/62
[2020-03-26] MEDS: EPOETIN ALFA-EPBX 10,000 UNIT/ML VIAL SUBCUT SCH (21:00)
[2020-03-26] MEDS: TRAMADOL 50MG TABLET PO PRN (21:51)
[2020-03-27] VITALS: BP 138/64
[2020-03-27] MEDS: VANCOMYCIN HCL 1000 MG/20 ML ORAL PO SCH ×4 (00:56→17:44)
[2020-03-27 04:00] VITALS: BP 119/59
[2020-03-27] MEDS: BLOOD SUGAR DIAGNOSTIC STRIP TEST SCH ×4 (05:57→21:00)
[2020-03-27] MEDS: INSULIN LISPRO 100 UNITS/ML SUBCUT SCH ×4 (05:58→21:16)
[2020-03-27 06:49] LABS: BASOPHILS % 0.9 % (0.0-2.0); HEMATOCRIT. 29.7 % (36.0-48.0); HEMOGLOBIN. 9.6 g/dL (12.0-16.0); LYMPHOCYTES % 9.8 % (20.0-50.0); MEAN CORPUSCULAR HEMOGLOBIN 25.8 pg (28.0-32.0); MEAN CORPUSCULAR VOLUME 80.2 fL (81.0-99.0); MEAN PLATELET VOLUME 9.3 fl (7.4-10.4); MONOCYTES % 9.2 % (2.0-8.0); NEUTROPHILS % 76.1 % (40.0-76.0); PLATELET 157 x1000/uL (130-400); RED CELL DISTRIBUTION WIDTH 18.1 % (11.6-14.6)
[2020-03-27] MEDS: SEVELAMER CARBONATE 800 MG TABLET PO SCH ×3 (06:51→17:40)
[2020-03-27 08:15] VITALS: BP 137/70
[2020-03-27] MEDS: ZINC SULFATE 220 MG ( 50 ) CAPSULE PO SCH (09:07)
[2020-03-27] MEDS: FAMOTIDINE 20MG TABLET PO SCH (09:08)
[2020-03-27] MEDS: CARVEDILOL 6.25 MG TABLET PO SCH ×2 (09:08→21:15)
[2020-03-27] MEDS: AMLODIPINE 5MG TABLET PO SCH ×2 (09:08→21:15)
[2020-03-27] MEDS: ASCORBIC ACID 500 MG TABLET PO SCH ×2 (09:08→21:15)
[2020-03-27] MEDS: CHOLECALCIFEROL (D3) 1000 UNIT TABLET PO SCH (09:08)
[2020-03-27] MEDS: METRONIDAZOLE 500 MG PREMIX 100 ML IV SCH ×3 (09:10→20:25)
[2020-03-27] MEDS ORDERED: POTASSIUM CHLORIDE 20MEQ TABLET SR PO SCH (10:00)
[2020-03-27 12:00] VITALS: BP 146/63
[2020-03-27 16:00] VITALS: BP 142/63
[2020-03-27] MEDS: TRAMADOL 50MG TABLET PO PRN (16:29)
[2020-03-27] MEDS: ENOXAPARIN 30MG/0.3ML SYR SUBCUT SCH (16:32)
[2020-03-27] MEDS: CEFEPIME 1,000 MG in DEXTROSE 5% WATER 50 ML IV SCH (17:43)
[2020-03-28] VITALS: BP_SYST 140; BP_SYST 149; BP_DIAS 58; BP_DIAS 70
[2020-03-28] MEDS: VANCOMYCIN HCL 1000 MG/20 ML ORAL PO SCH ×6 (02:04→23:39)
[2020-03-28 04:00] VITALS: BP 125/63
[2020-03-28] MEDS: BLOOD SUGAR DIAGNOSTIC STRIP TEST SCH ×4 (05:30→20:30)
[2020-03-28] MEDS: INSULIN LISPRO 100 UNITS/ML SUBCUT SCH ×4 (05:34→23:26)
[2020-03-28 07:01] LABS: BASOPHILS % 0.5 % (0.0-2.0); HEMATOCRIT. 31.2 % (36.0-48.0); HEMOGLOBIN. 10.2 g/dL (12.0-16.0); LYMPHOCYTES % 10.5 % (20.0-50.0); MEAN CORPUSCULAR HEMOGLOBIN 26.1 pg (28.0-32.0); MEAN CORPUSCULAR VOLUME 80.3 fL (81.0-99.0); MEAN PLATELET VOLUME 9.4 fl (7.4-10.4); MONOCYTES % 9.4 % (2.0-8.0); NEUTROPHILS % 75.6 % (40.0-76.0); PLATELET 153 x1000/uL (130-400); RED BLOOD CELL COUNT 3.89 mill/uL (4.2-5.4); RED CELL DISTRIBUTION WIDTH 17.6 % (11.6-14.6)
[2020-03-28 07:26] LABS: PHOSPHORUS 3.1 mg/dL (2.5-4.9)
[2020-03-28] MEDS: SEVELAMER CARBONATE 800 MG TABLET PO SCH ×3 (07:40→17:40)
[2020-03-28 08:00] VITALS: BP 148/66
[2020-03-28] MEDS: METRONIDAZOLE 500 MG PREMIX 100 ML IV SCH (09:00)
[2020-03-28] MEDS: ASCORBIC ACID 500 MG TABLET PO SCH ×2 (10:15→23:28)
[2020-03-28] MEDS: TRAMADOL 50MG TABLET PO PRN (10:15)
[2020-03-28] MEDS: ZINC SULFATE 220 MG ( 50 ) CAPSULE PO SCH (10:15)
[2020-03-28] MEDS: FAMOTIDINE 20MG TABLET PO SCH (10:15)
[2020-03-28] MEDS: CHOLECALCIFEROL (D3) 1000 UNIT TABLET PO SCH (10:16)
[2020-03-28] MEDS: CARVEDILOL 6.25 MG TABLET PO SCH ×2 (10:18→23:30)
[2020-03-28] MEDS: AMLODIPINE 5MG TABLET PO SCH ×2 (10:18→23:28)
[2020-03-28 12:00] VITALS: BP 134/76
[2020-03-28] MEDS ORDERED: LIDOCAINE HCL 1% 20ML VIAL (Pyxis) INJ ONE (13:20)
[2020-03-28] MEDS: POTASSIUM CHLORIDE 20MEQ TABLET SR PO SCH (13:30)
[2020-03-28] MEDS ORDERED: IOHEXOL-350 100 ML BOTTLE ONE (14:31)
[2020-03-28] MEDS: ENOXAPARIN 30MG/0.3ML SYR SUBCUT SCH (15:00)
[2020-03-28 16:00] VITALS: BP 110/43
[2020-03-28] MEDS ORDERED: POTASSIUM CHLORIDE 20MEQ TABLET SR PO NR (17:00)
[2020-03-28] MEDS ORDERED: HEPARIN SODIUM 1,000 UNIT/1ML VIAL IV NR (17:30)
[2020-03-28] MEDS: CEFEPIME 1,000 MG in DEXTROSE 5% WATER 50 ML IV SCH (19:32)
[2020-03-28 20:00] VITALS: BP 154/70
[2020-03-29] VITALS: BP 140/70
[2020-03-29 04:00] VITALS: BP 134/54
[2020-03-29] MEDS: BLOOD SUGAR DIAGNOSTIC STRIP TEST SCH ×4 (05:57→21:00)
[2020-03-29] MEDS: VANCOMYCIN HCL 1000 MG/20 ML ORAL PO SCH ×4 (06:00→23:31)
[2020-03-29] MEDS: INSULIN LISPRO 100 UNITS/ML SUBCUT SCH ×4 (06:09→21:01)
[2020-03-29] MEDS: SEVELAMER CARBONATE 800 MG TABLET PO SCH ×4 (07:40→17:40)
[2020-03-29 08:00] VITALS: BP 117/54
[2020-03-29] MEDS: ZINC SULFATE 220 MG ( 50 ) CAPSULE PO SCH (08:19)
[2020-03-29] MEDS: ASCORBIC ACID 500 MG TABLET PO SCH ×2 (08:19→21:00)
[2020-03-29] MEDS: CHOLECALCIFEROL (D3) 1000 UNIT TABLET PO SCH (08:19)
[2020-03-29] MEDS: FAMOTIDINE 20MG TABLET PO SCH (08:19)
[2020-03-29] MEDS: CARVEDILOL 6.25 MG TABLET PO SCH ×2 (08:19→21:00)
[2020-03-29] MEDS: AMLODIPINE 5MG TABLET PO SCH ×2 (08:20→21:00)
[2020-03-29] MEDS: POTASSIUM CHLORIDE 20MEQ TABLET SR PO SCH (08:23)
[2020-03-29] MEDS: TRAMADOL 50MG TABLET PO PRN (09:27)
[2020-03-29 10:35] LABS: BASOPHILS % 1.1 % (0.0-2.0); EOSINOPHILS % 4.7 % (0.0-5.0); HEMATOCRIT. 31.3 % (36.0-48.0); HEMOGLOBIN. 9.9 g/dL (12.0-16.0); LYMPHOCYTES % 10.7 % (20.0-50.0); MEAN CORPUSCULAR HEMOGLOBIN 25.5 pg (28.0-32.0); MEAN CORPUSCULAR VOLUME 80.3 fL (81.0-99.0); MEAN PLATELET VOLUME 9.7 fl (7.4-10.4); NEUTROPHILS % 76.5 % (40.0-76.0); PLATELET 174 x1000/uL (130-400); RED BLOOD CELL COUNT 3.89 mill/uL (4.2-5.4)
[2020-03-29 12:00] VITALS: BP 128/36
[2020-03-29] MEDS: LOPERAMIDE HCL 2MG CAPSULE PO PRN (15:43)
[2020-03-29] MEDS: ENOXAPARIN 30MG/0.3ML SYR SUBCUT SCH (15:44)
[2020-03-29 16:00] VITALS: BP 122/39
[2020-03-29] MEDS: CEFEPIME 1,000 MG in DEXTROSE 5% WATER 50 ML IV SCH (17:35)
[2020-03-29 20:00] VITALS: BP 139/33
[2020-03-30] VITALS (7 sets, daily range): BP systolic 120–151; BP diastolic 43–68
[2020-03-30] MEDS: TRAMADOL 50MG TABLET PO PRN ×2 (02:08→11:34)
[2020-03-30] MEDS: VANCOMYCIN HCL 1000 MG/20 ML ORAL PO SCH ×3 (05:24→18:24)
[2020-03-30] MEDS: INSULIN LISPRO 100 UNITS/ML SUBCUT SCH ×4 (06:28→20:45)
[2020-03-30] MEDS: BLOOD SUGAR DIAGNOSTIC STRIP TEST SCH ×4 (06:28→20:45)
[2020-03-30 07:04] LABS: PHOSPHORUS 2.4 mg/dL (2.5-4.9)
[2020-03-30 07:34] LABS: BASOPHILS % 0.9 % (0.0-2.0); EOSINOPHILS % 5.5 % (0.0-5.0); HEMATOCRIT. 31.4 % (36.0-48.0); HEMOGLOBIN. 10.1 g/dL (12.0-16.0); LYMPHOCYTES % 11.6 % (20.0-50.0); MEAN CORPUSCULAR HEMOGLOBIN 25.9 pg (28.0-32.0); MEAN CORPUSCULAR VOLUME 80.7 fL (81.0-99.0); MEAN PLATELET VOLUME 9.7 fl (7.4-10.4); MONOCYTES % 9.8 % (2.0-8.0); NEUTROPHILS % 72.2 % (40.0-76.0); PLATELET 189 x1000/uL (130-400); RED BLOOD CELL COUNT 3.89 mill/uL (4.2-5.4)
[2020-03-30] MEDS: SEVELAMER CARBONATE 800 MG TABLET PO SCH ×3 (07:40→17:40)
[2020-03-30] MEDS: CARVEDILOL 6.25 MG TABLET PO SCH ×2 (09:03→20:44)
[2020-03-30] MEDS: FAMOTIDINE 20MG TABLET PO SCH (09:04)
[2020-03-30] MEDS: ASCORBIC ACID 500 MG TABLET PO SCH ×2 (09:04→20:44)
[2020-03-30] MEDS: POTASSIUM CHLORIDE 20MEQ TABLET SR PO SCH (09:04)
[2020-03-30] MEDS: CHOLECALCIFEROL (D3) 1000 UNIT TABLET PO SCH (09:04)
[2020-03-30] MEDS: AMLODIPINE 5MG TABLET PO SCH ×2 (09:04→20:44)
[2020-03-30] MEDS: ZINC SULFATE 220 MG ( 50 ) CAPSULE PO SCH (09:04)
[2020-03-30] MEDS ORDERED: POTASSIUM PHOS,M-BASIC-D-BASIC 15 MMOL in DEXT 5% WATER 245 ML IV NR (10:30)
[2020-03-30] MEDS: ONDANSETRON HCL 4MG/2ML INJ IV PRN (11:00)
[2020-03-30] MEDS: ACETAMINOPHEN 325MG TABLET PO PRN (14:10)
[2020-03-30] MEDS: ENOXAPARIN 30MG/0.3ML SYR SUBCUT SCH (15:02)
[2020-03-30] MEDS ORDERED: TRAMADOL 50MG TABLET PO PRN (23:45)
[2020-03-31] VITALS: BP 133/55
[2020-03-31] MEDS: VANCOMYCIN HCL 1000 MG/20 ML ORAL PO SCH ×3 (00:02→12:37)
[2020-03-31 04:00] VITALS: BP 110/44
[2020-03-31] MEDS: INSULIN LISPRO 100 UNITS/ML SUBCUT SCH ×4 (06:17→21:48)
[2020-03-31] MEDS: BLOOD SUGAR DIAGNOSTIC STRIP TEST SCH ×4 (06:17→21:00)
[2020-03-31 07:25] LABS: BASOPHILS % 1.2 % (0.0-2.0); HEMATOCRIT. 31.8 % (36.0-48.0); HEMOGLOBIN. 10.1 g/dL (12.0-16.0); MEAN CORPUSCULAR HEMOGLOBIN 25.6 pg (28.0-32.0); MEAN CORPUSCULAR VOLUME 80.9 fL (81.0-99.0); MEAN PLATELET VOLUME 9.1 fl (7.4-10.4); MONOCYTES % 11.3 % (2.0-8.0); NEUTROPHILS % 67.5 % (40.0-76.0); PLATELET 204 x1000/uL (130-400); RED BLOOD CELL COUNT 3.93 mill/uL (4.2-5.4); RED CELL DISTRIBUTION WIDTH 18.2 % (11.6-14.6)
[2020-03-31] MEDS: SEVELAMER CARBONATE 800 MG TABLET PO SCH ×3 (07:40→17:40)
[2020-03-31 08:00] VITALS: BP 116/51
[2020-03-31 08:27] LABS: PHOSPHORUS 4.3 mg/dL (2.5-4.9)
[2020-03-31] MEDS: AMLODIPINE 5MG TABLET PO SCH ×2 (09:00→21:44)
[2020-03-31] MEDS: POTASSIUM CHLORIDE 20MEQ TABLET SR PO SCH (09:00)
[2020-03-31] MEDS: FAMOTIDINE 20MG TABLET PO SCH (09:00)
[2020-03-31] MEDS: ASCORBIC ACID 500 MG TABLET PO SCH ×2 (09:00→21:44)
[2020-03-31] MEDS: CARVEDILOL 6.25 MG TABLET PO SCH ×2 (09:00→21:43)
[2020-03-31] MEDS: CHOLECALCIFEROL (D3) 1000 UNIT TABLET PO SCH (09:00)
[2020-03-31] MEDS: ZINC SULFATE 220 MG ( 50 ) CAPSULE PO SCH (09:00)
[2020-03-31 12:00] VITALS: BP 136/49
[2020-03-31] MEDS: ENOXAPARIN 30MG/0.3ML SYR SUBCUT SCH (15:00)
[2020-03-31 16:00] VITALS: BP 153/45
[2020-03-31 20:00] VITALS: BP 159/59
[2020-04-01] VITALS: BP 154/63
[2020-04-01 04:00] VITALS: BP 142/67
[2020-04-01] MEDS: BLOOD SUGAR DIAGNOSTIC STRIP TEST SCH ×4 (04:55→19:52)
[2020-04-01] MEDS: INSULIN LISPRO 100 UNITS/ML SUBCUT SCH ×4 (05:29→20:51)
[2020-04-01 06:55] LABS: HEMOGLOBIN. 10.2 g/dL (12.0-16.0); MEAN CORPUSCULAR HEMOGLOBIN 26.1 pg (28.0-32.0); MEAN CORPUSCULAR VOLUME 81.6 fL (81.0-99.0); MEAN PLATELET VOLUME 9.5 fl (7.4-10.4); PLATELET 250 x1000/uL (130-400); RED BLOOD CELL COUNT 3.92 mill/uL (4.2-5.4); RED CELL DISTRIBUTION WIDTH 18.7 % (11.6-14.6)
[2020-04-01] MEDS: SEVELAMER CARBONATE 800 MG TABLET PO SCH ×3 (07:40→17:40)
[2020-04-01 08:00] VITALS: BP 150/52
[2020-04-01] MEDS: ZINC SULFATE 220 MG ( 50 ) CAPSULE PO SCH (08:26)
[2020-04-01] MEDS: CARVEDILOL 6.25 MG TABLET PO SCH ×2 (08:26→20:45)
[2020-04-01] MEDS: POTASSIUM CHLORIDE 20MEQ TABLET SR PO SCH (08:26)
[2020-04-01] MEDS: ASCORBIC ACID 500 MG TABLET PO SCH ×2 (08:27→20:44)
[2020-04-01] MEDS: AMLODIPINE 5MG TABLET PO SCH ×2 (08:27→20:44)
[2020-04-01] MEDS: CHOLECALCIFEROL (D3) 1000 UNIT TABLET PO SCH (08:28)
[2020-04-01] MEDS: FAMOTIDINE 20MG TABLET PO SCH (08:28)
[2020-04-01 09:07] LABS: PHOSPHORUS 4.8 mg/dL (2.5-4.9)
[2020-04-01 12:00] VITALS: BP 162/72
[2020-04-01 14:36] LABS: NUCLEATED RED BLOOD CELLS 1 /100 WBC
[2020-04-01 14:39] LABS: PLATELET ESTIMATE NORMAL
[2020-04-01 16:00] VITALS: BP 168/72
[2020-04-01] MEDS ORDERED: ENOXAPARIN 30MG/0.3ML SYR SUBCUT NR (16:30)
[2020-04-01 20:00] VITALS: BP 191/79
[2020-04-01] MEDS: LOPERAMIDE HCL 2MG CAPSULE PO PRN (20:44)
[2020-04-01] MEDS: METRONIDAZOLE 250MG TABLET PO SCH (20:44)
[2020-04-01] MEDS: CEFEPIME 1,000 MG in DEXTROSE 5% WATER 50 ML IV SCH (21:03)
[2020-04-02] VITALS (8 sets, daily range): BP systolic 142–201; BP diastolic 47–77
[2020-04-02] MEDS: ACETAMINOPHEN 325MG TABLET PO PRN ×2 (00:50→21:07)
[2020-04-02] MEDS: VANCOMYCIN HCL 1000 MG/20 ML ORAL PO SCH ×4 (01:11→23:53)
[2020-04-02] MEDS: DIPHENHYDRAMINE 50MG/ML VIAL IV PRN ×2 (03:54→23:49)
[2020-04-02] MEDS: BLOOD SUGAR DIAGNOSTIC STRIP TEST SCH ×4 (04:57→21:08)
[2020-04-02] MEDS: CLONIDINE 0.1MG TABLET PO PRN ×2 (05:21→22:27)
[2020-04-02] MEDS: INSULIN LISPRO 100 UNITS/ML SUBCUT SCH ×4 (05:29→21:00)
[2020-04-02 05:59] LABS: PHOSPHORUS 3.5 mg/dL (2.5-4.9)
[2020-04-02 06:24] LABS: BASOPHILS % 1.7 % (0.0-2.0); EOSINOPHILS % 3.8 % (0.0-5.0); HEMATOCRIT. 31.7 % (36.0-48.0); HEMOGLOBIN. 10.3 g/dL (12.0-16.0); LYMPHOCYTES % 15.2 % (20.0-50.0); MEAN CORPUSCULAR HEMOGLOBIN 26.2 pg (28.0-32.0); MEAN PLATELET VOLUME 9.2 fl (7.4-10.4); MONOCYTES % 11.5 % (2.0-8.0); NEUTROPHILS % 67.8 % (40.0-76.0); PLATELET 262 x1000/uL (130-400); RED BLOOD CELL COUNT 3.92 mill/uL (4.2-5.4); RED CELL DISTRIBUTION WIDTH 18.6 % (11.6-14.6)
[2020-04-02] MEDS: SEVELAMER CARBONATE 800 MG TABLET PO SCH ×4 (07:40→17:20)
[2020-04-02] MEDS: POTASSIUM CHLORIDE 20MEQ TABLET SR PO SCH ×2 (09:00→09:48)
[2020-04-02] MEDS: ZINC SULFATE 220 MG ( 50 ) CAPSULE PO SCH (09:49)
[2020-04-02] MEDS: CHOLECALCIFEROL (D3) 1000 UNIT TABLET PO SCH (09:49)
[2020-04-02] MEDS: METRONIDAZOLE 250MG TABLET PO SCH ×2 (09:49→23:50)
[2020-04-02] MEDS: LOPERAMIDE HCL 2MG CAPSULE PO PRN (09:50)
[2020-04-02] MEDS: ASCORBIC ACID 500 MG TABLET PO SCH ×2 (09:51→21:06)
[2020-04-02] MEDS: CARVEDILOL 6.25 MG TABLET PO SCH ×2 (09:51→21:07)
[2020-04-02] MEDS: AMLODIPINE 5MG TABLET PO SCH ×2 (09:51→21:07)
[2020-04-02] MEDS: FAMOTIDINE 20MG TABLET PO SCH (09:51)
[2020-04-02] MEDS ORDERED: FENTANYL CITRATE/PF 50MCG/ML 2ML VIAL ONE ×2 (13:40→15:18)
[2020-04-02] MEDS ORDERED: MIDAZOLAM HCL 2 MG/2 ML VIAL ONE ×2 (13:40→15:18)
[2020-04-02] MEDS ORDERED: IODIXANOL 320MG/ML 100 ML BOTTLE IV ONE (13:41)
[2020-04-02] MEDS ORDERED: LIDOCAINE HCL 1% 20ML VIAL (Pyxis) INJ ONE (13:41)
[2020-04-02] MEDS ORDERED: ASPIRIN/SOD BICARB/CITRIC ACID 324MG TAB EFF ONE (13:42)
[2020-04-02] MEDS ORDERED: NICARDIPINE 100MCG/ML 10ML VIAL (CATH LAB) IV ONE (13:45)
[2020-04-02] MEDS ORDERED: HEPARIN SODIUM 1,000 UNIT/1ML VIAL IV ONE (14:00)
[2020-04-02] MEDS ORDERED: ACETAMINOPHEN 325MG TABLET PO PRN (15:30)
[2020-04-02] MEDS ORDERED: CLOPIDOGREL 75MG TABLET PO ONE (15:30)
[2020-04-02] MEDS ORDERED: ATROPINE SULFATE 1MG/10ML SYR IV PRN (15:30)
[2020-04-02] MEDS: CEFEPIME 1,000 MG in DEXTROSE 5% WATER 50 ML IV SCH (23:50)
[2020-04-03] VITALS (13 sets, daily range): BP systolic 132–174; BP diastolic 58–86
[2020-04-03] MEDS: ONDANSETRON HCL 4MG/2ML INJ IV PRN (05:32)
[2020-04-03] MEDS: VANCOMYCIN HCL 1000 MG/20 ML ORAL PO SCH ×4 (05:33→22:42)
[2020-04-03] MEDS: CLONIDINE 0.1MG TABLET PO PRN (05:33)
[2020-04-03] MEDS: BLOOD SUGAR DIAGNOSTIC STRIP TEST SCH ×4 (05:34→21:00)
[2020-04-03] MEDS: INSULIN LISPRO 100 UNITS/ML SUBCUT SCH ×4 (07:20→21:00)
[2020-04-03] MEDS: SEVELAMER CARBONATE 800 MG TABLET PO SCH ×3 (07:20→17:20)
[2020-04-03 07:57] LABS: HEMATOCRIT. 30.9 % (36.0-48.0); MEAN CORPUSCULAR HEMOGLOBIN 26.2 pg (28.0-32.0); MEAN CORPUSCULAR VOLUME 81.1 fL (81.0-99.0); MEAN PLATELET VOLUME 8.8 fl (7.4-10.4); PLATELET 260 x1000/uL (130-400); RED BLOOD CELL COUNT 3.81 mill/uL (4.2-5.4); RED CELL DISTRIBUTION WIDTH 19.1 % (11.6-14.6)
[2020-04-03 08:19] LABS: PHOSPHORUS 4.8 mg/dL (2.5-4.9)
[2020-04-03] MEDS ORDERED: ASPIRIN 325MG TABLET PO SCH (09:00)
[2020-04-03] MEDS: POTASSIUM CHLORIDE 20MEQ TABLET SR PO SCH (11:29)
[2020-04-03] MEDS: ASCORBIC ACID 500 MG TABLET PO SCH ×2 (11:29→22:40)
[2020-04-03] MEDS: CLOPIDOGREL 75MG TABLET PO SCH (11:29)
[2020-04-03] MEDS: CHOLECALCIFEROL (D3) 1000 UNIT TABLET PO SCH (11:29)
[2020-04-03] MEDS: ZINC SULFATE 220 MG ( 50 ) CAPSULE PO SCH (11:30)
[2020-04-03] MEDS: METRONIDAZOLE 250MG TABLET PO SCH ×2 (11:30→22:40)
[2020-04-03] MEDS: AMLODIPINE 5MG TABLET PO SCH ×2 (11:30→22:41)
[2020-04-03] MEDS: CARVEDILOL 6.25 MG TABLET PO SCH ×2 (11:31→22:41)
[2020-04-03] MEDS: FAMOTIDINE 20MG TABLET PO SCH (11:31)
[2020-04-03 19:51] LABS: PLATELET ESTIMATE NORMAL
[2020-04-03] MEDS ORDERED: HEPARIN SODIUM 1,000 UNIT/1ML VIAL IV NR (22:00)
[2020-04-03] MEDS: LOPERAMIDE HCL 2MG CAPSULE PO PRN (22:41)
[2020-04-03] MEDS: CEFEPIME 1,000 MG in DEXTROSE 5% WATER 50 ML IV SCH (22:41)
[2020-04-04] VITALS (11 sets, daily range): BP systolic 131–156; BP diastolic 56–95
[2020-04-04] MEDS: ACETAMINOPHEN 325MG TABLET PO PRN (04:56)
[2020-04-04 06:16] LABS: BASOPHILS % 1.4 % (0.0-2.0); EOSINOPHILS % 8.1 % (0.0-5.0); HEMATOCRIT. 31.9 % (36.0-48.0); HEMOGLOBIN. 10.1 g/dL (12.0-16.0); LYMPHOCYTES % 18.6 % (20.0-50.0); MEAN CORPUSCULAR HEMOGLOBIN 25.5 pg (28.0-32.0); MEAN CORPUSCULAR VOLUME 80.4 fL (81.0-99.0); MONOCYTES % 14.1 % (2.0-8.0); NEUTROPHILS % 57.8 % (40.0-76.0); PLATELET 255 x1000/uL (130-400); RED BLOOD CELL COUNT 3.97 mill/uL (4.2-5.4); RED CELL DISTRIBUTION WIDTH 19.2 % (11.6-14.6)
[2020-04-04] MEDS: VANCOMYCIN HCL 1000 MG/20 ML ORAL PO SCH ×4 (06:40→17:28)
[2020-04-04] MEDS: BLOOD SUGAR DIAGNOSTIC STRIP TEST SCH ×4 (06:41→20:38)
[2020-04-04] MEDS: INSULIN LISPRO 100 UNITS/ML SUBCUT SCH ×4 (06:43→20:38)
[2020-04-04 06:46] LABS: PHOSPHORUS 3.6 mg/dL (2.5-4.9)
[2020-04-04] MEDS: SEVELAMER CARBONATE 800 MG TABLET PO SCH ×3 (07:20→16:56)
[2020-04-04] MEDS: CARVEDILOL 6.25 MG TABLET PO SCH ×2 (09:04→20:36)
[2020-04-04] MEDS: ASPIRIN 81MG TABLET PO SCH (09:05)
[2020-04-04] MEDS: POTASSIUM CHLORIDE 20MEQ TABLET SR PO SCH (09:05)
[2020-04-04] MEDS: CHOLECALCIFEROL (D3) 1000 UNIT TABLET PO SCH (09:06)
[2020-04-04] MEDS: AMLODIPINE 5MG TABLET PO SCH ×2 (09:06→20:48)
[2020-04-04] MEDS: ZINC SULFATE 220 MG ( 50 ) CAPSULE PO SCH (09:07)
[2020-04-04] MEDS: CLOPIDOGREL 75MG TABLET PO SCH (09:07)
[2020-04-04] MEDS: ASCORBIC ACID 500 MG TABLET PO SCH ×2 (09:07→20:36)
[2020-04-04] MEDS: FAMOTIDINE 20MG TABLET PO SCH (09:10)
[2020-04-04] MEDS: LOPERAMIDE HCL 2MG CAPSULE PO PRN ×2 (09:28→21:35)
[2020-04-04] MEDS: METRONIDAZOLE 250MG TABLET PO SCH ×2 (09:28→20:36)
[2020-04-04] MEDS: TRAMADOL 50MG TABLET PO PRN ×2 (15:13→21:35)
[2020-04-04] MEDS: CEFEPIME 1,000 MG in DEXTROSE 5% WATER 50 ML IV SCH (20:36)
[2020-04-05] VITALS (10 sets, daily range): BP systolic 98–184; BP diastolic 59–82
[2020-04-05] MEDS: VANCOMYCIN HCL 1000 MG/20 ML ORAL PO SCH ×4 (00:30→18:47)
[2020-04-05] MEDS: BLOOD SUGAR DIAGNOSTIC STRIP TEST SCH ×4 (06:20→21:48)
[2020-04-05] MEDS: DIPHENHYDRAMINE 50MG/ML VIAL IV PRN ×2 (06:21→18:47)
[2020-04-05 07:11] LABS: HEMATOCRIT. 32.7 % (36.0-48.0); HEMOGLOBIN. 10.6 g/dL (12.0-16.0); MEAN CORPUSCULAR HEMOGLOBIN 26.3 pg (28.0-32.0); MEAN CORPUSCULAR VOLUME 80.8 fL (81.0-99.0); MEAN PLATELET VOLUME 8.9 fl (7.4-10.4); PLATELET 253 x1000/uL (130-400); RED BLOOD CELL COUNT 4.05 mill/uL (4.2-5.4); RED CELL DISTRIBUTION WIDTH 19.5 % (11.6-14.6)
[2020-04-05] MEDS: INSULIN LISPRO 100 UNITS/ML SUBCUT SCH ×4 (07:20→21:00)
[2020-04-05 07:50] LABS: PHOSPHORUS 4.4 mg/dL (2.5-4.9)
[2020-04-05] MEDS ORDERED: HEPARIN SODIUM 1,000 UNIT/1ML VIAL IV SCH (08:15)
[2020-04-05] MEDS: POTASSIUM CHLORIDE 20MEQ TABLET SR PO SCH (10:03)
[2020-04-05] MEDS: ASPIRIN 81MG TABLET PO SCH (10:04)
[2020-04-05] MEDS: CHOLECALCIFEROL (D3) 1000 UNIT TABLET PO SCH (10:04)
[2020-04-05] MEDS: ZINC SULFATE 220 MG ( 50 ) CAPSULE PO SCH (10:05)
[2020-04-05] MEDS: CLOPIDOGREL 75MG TABLET PO SCH (10:05)
[2020-04-05] MEDS: SEVELAMER CARBONATE 800 MG TABLET PO SCH ×3 (10:05→17:12)
[2020-04-05] MEDS: METRONIDAZOLE 250MG TABLET PO SCH ×2 (10:05→21:44)
[2020-04-05] MEDS: FAMOTIDINE 20MG TABLET PO SCH (10:05)
[2020-04-05] MEDS: ASCORBIC ACID 500 MG TABLET PO SCH ×2 (10:05→21:44)
[2020-04-05] MEDS: CARVEDILOL 6.25 MG TABLET PO SCH ×2 (10:06→21:44)
[2020-04-05] MEDS: AMLODIPINE 5MG TABLET PO SCH ×2 (10:06→21:44)
[2020-04-05] MEDS: TRAMADOL 50MG TABLET PO PRN (13:19)
[2020-04-05 14:16] LABS: PLATELET ESTIMATE NORMAL
[2020-04-05] MEDS: MORPHINE SULFATE 2 MG/ML CPJ (NOT FOR IM USE) IV PRN (18:48)
[2020-04-05] MEDS: CEFEPIME 1,000 MG in DEXTROSE 5% WATER 50 ML IV SCH (21:42)
[2020-04-06] VITALS (12 sets, daily range): BP systolic 140–174; BP diastolic 68–90
[2020-04-06] MEDS: VANCOMYCIN HCL 1000 MG/20 ML ORAL PO SCH ×5 (06:03→23:04)
[2020-04-06] MEDS: BLOOD SUGAR DIAGNOSTIC STRIP TEST SCH ×4 (06:04→20:32)
[2020-04-06] MEDS: CLONIDINE 0.1MG TABLET PO PRN (06:07)
[2020-04-06] MEDS: SEVELAMER CARBONATE 800 MG TABLET PO SCH ×3 (07:20→17:20)
[2020-04-06] MEDS: ASCORBIC ACID 500 MG TABLET PO SCH ×2 (08:29→20:22)
[2020-04-06] MEDS: CHOLECALCIFEROL (D3) 1000 UNIT TABLET PO SCH (08:29)
[2020-04-06] MEDS: ZINC SULFATE 220 MG ( 50 ) CAPSULE PO SCH (08:29)
[2020-04-06] MEDS: ASPIRIN 81MG TABLET PO SCH (08:31)
[2020-04-06] MEDS: INSULIN LISPRO 100 UNITS/ML SUBCUT SCH ×4 (08:31→20:32)
[2020-04-06] MEDS: POTASSIUM CHLORIDE 20MEQ TABLET SR PO SCH (08:31)
[2020-04-06] MEDS: CLOPIDOGREL 75MG TABLET PO SCH (08:32)
[2020-04-06] MEDS: FAMOTIDINE 20MG TABLET PO SCH (08:32)
[2020-04-06] MEDS: METRONIDAZOLE 250MG TABLET PO SCH ×2 (08:32→20:22)
[2020-04-06] MEDS: CARVEDILOL 6.25 MG TABLET PO SCH ×2 (08:33→20:22)
[2020-04-06] MEDS: AMLODIPINE 5MG TABLET PO SCH ×2 (08:34→20:22)
[2020-04-06 10:14] LABS: HEMATOCRIT. 34.1 % (36.0-48.0); HEMOGLOBIN. 10.8 g/dL (12.0-16.0); MEAN CORPUSCULAR HEMOGLOBIN 25.9 pg (28.0-32.0); MEAN CORPUSCULAR VOLUME 81.7 fL (81.0-99.0); MEAN PLATELET VOLUME 9.1 fl (7.4-10.4); PLATELET 235 x1000/uL (130-400); RED BLOOD CELL COUNT 4.17 mill/uL (4.2-5.4); RED CELL DISTRIBUTION WIDTH 19.6 % (11.6-14.6)
[2020-04-06 10:30] LABS: PHOSPHORUS 3.7 mg/dL (2.5-4.9)
[2020-04-06 11:49] LABS: PLATELET ESTIMATE NORMAL
[2020-04-06] MEDS: CEFEPIME 1,000 MG in DEXTROSE 5% WATER 50 ML IV SCH (20:21)
[2020-04-06] MEDS: TRAMADOL 50MG TABLET PO PRN (20:34)
[2020-04-06] MEDS: LOPERAMIDE HCL 2MG CAPSULE PO PRN (21:25)
[2020-04-07] VITALS (12 sets, daily range): BP systolic 143–175; BP diastolic 67–122
[2020-04-07] MEDS: VANCOMYCIN HCL 1000 MG/20 ML ORAL PO SCH ×3 (06:26→18:06)
[2020-04-07] MEDS: BLOOD SUGAR DIAGNOSTIC STRIP TEST SCH ×4 (06:35→20:13)
[2020-04-07] MEDS: SEVELAMER CARBONATE 800 MG TABLET PO SCH ×4 (07:20→18:01)
[2020-04-07] MEDS: INSULIN LISPRO 100 UNITS/ML SUBCUT SCH ×4 (07:20→21:25)
[2020-04-07] MEDS: POTASSIUM CHLORIDE 20MEQ TABLET SR PO SCH (09:00)
[2020-04-07] MEDS: FAMOTIDINE 20MG TABLET PO SCH (09:00)
[2020-04-07] MEDS: ZINC SULFATE 220 MG ( 50 ) CAPSULE PO SCH (09:00)
[2020-04-07] MEDS: ASPIRIN 81MG TABLET PO SCH (09:00)
[2020-04-07] MEDS: ASCORBIC ACID 500 MG TABLET PO SCH ×2 (09:00→20:13)
[2020-04-07] MEDS: CHOLECALCIFEROL (D3) 1000 UNIT TABLET PO SCH (09:00)
[2020-04-07] MEDS: METRONIDAZOLE 250MG TABLET PO SCH ×2 (09:17→20:13)
[2020-04-07] MEDS: CARVEDILOL 6.25 MG TABLET PO SCH ×2 (09:17→20:12)
[2020-04-07] MEDS: CLOPIDOGREL 75MG TABLET PO SCH (09:17)
[2020-04-07] MEDS: AMLODIPINE 5MG TABLET PO SCH ×2 (09:18→20:13)
[2020-04-07 09:36] LABS: BASOPHILS % 1.9 % (0.0-2.0); HEMATOCRIT. 33.7 % (36.0-48.0); HEMOGLOBIN. 10.6 g/dL (12.0-16.0); MEAN CORPUSCULAR HEMOGLOBIN 25.6 pg (28.0-32.0); MEAN PLATELET VOLUME 9.2 fl (7.4-10.4); MONOCYTES % 11.6 % (2.0-8.0); NEUTROPHILS % 56.5 % (40.0-76.0); PLATELET 213 x1000/uL (130-400); RED BLOOD CELL COUNT 4.15 mill/uL (4.2-5.4); RED CELL DISTRIBUTION WIDTH 19.6 % (11.6-14.6)
[2020-04-07] MEDS ORDERED: LIDOCAINE HCL 1% 20ML VIAL (Pyxis) INJ ONE (11:00)
[2020-04-07] MEDS ORDERED: BUPIVACAINE HCL/PF 0.5% (5MG/ML) 10ML ONE (11:00)
[2020-04-07] MEDS ORDERED: BACITRACIN 50,000 UNITS/VIAL ONE (11:01)
[2020-04-07] MEDS ORDERED: DEXAMETHASONE 4MG/ML 1ML VIAL ONE ×2 (11:01→15:23)
[2020-04-07] MEDS ORDERED: FENTANYL CITRATE/PF 50MCG/ML 2ML VIAL ONE (14:56)
[2020-04-07] MEDS ORDERED: PROPOFOL 200MG/20ML VIAL IV ONE (14:56)
[2020-04-07] MEDS ORDERED: MIDAZOLAM HCL 2 MG/2 ML VIAL ONE (14:57)
[2020-04-07] MEDS ORDERED: HYDROMORPHONE HCL/PF 2MG/ML CPJ IV PRN (15:15)
[2020-04-07] MEDS ORDERED: MEPERIDINE HCL/PF 25MG/ML CPJ IV PRN (15:15)
[2020-04-07] MEDS ORDERED: ONDANSETRON HCL 4MG/2ML INJ IV PRN (15:15)
[2020-04-07] MEDS ORDERED: LABETALOL 5MG/ML SYR 20 MG/4 ML SYRINGE IV PRN (15:15)
[2020-04-07] MEDS ORDERED: ONDANSETRON HCL 4MG/2ML INJ ONE (15:23)
[2020-04-07] MEDS ORDERED: BACITRACIN/POLYMYXIN B SULFATE OINT 28.35GM TOP ONE (15:39)
[2020-04-07] MEDS: CEFEPIME 1,000 MG in DEXTROSE 5% WATER 50 ML IV SCH (20:13)
[2020-04-07] MEDS: TRAMADOL 50MG TABLET PO PRN (21:29)
[2020-04-08] VITALS (12 sets, daily range): BP systolic 104–172; BP diastolic 39–78
[2020-04-08 06:23] LABS: BASOPHILS % 0.7 % (0.0-2.0); HEMATOCRIT. 28.7 % (36.0-48.0); HEMOGLOBIN. 9.1 g/dL (12.0-16.0); LYMPHOCYTES % 18.5 % (20.0-50.0); MEAN CORPUSCULAR HEMOGLOBIN 25.5 pg (28.0-32.0); MEAN CORPUSCULAR VOLUME 80.4 fL (81.0-99.0); MEAN PLATELET VOLUME 8.5 fl (7.4-10.4); MONOCYTES % 4.4 % (2.0-8.0); NEUTROPHILS % 76.4 % (40.0-76.0); PLATELET 224 x1000/uL (130-400); RED BLOOD CELL COUNT 3.57 mill/uL (4.2-5.4); RED CELL DISTRIBUTION WIDTH 19.2 % (11.6-14.6)
[2020-04-08 06:40] LABS: PHOSPHORUS 4.6 mg/dL (2.5-4.9)
[2020-04-08] MEDS: BLOOD SUGAR DIAGNOSTIC STRIP TEST SCH ×4 (06:44→21:27)
[2020-04-08] MEDS: INSULIN LISPRO 100 UNITS/ML SUBCUT SCH ×4 (07:20→21:39)
[2020-04-08] MEDS: SEVELAMER CARBONATE 800 MG TABLET PO SCH ×3 (07:20→17:20)
[2020-04-08] MEDS ORDERED: DEXTROSE 50% WATER 50ML SYRINGE IV SCH (09:00)
[2020-04-08] MEDS: METRONIDAZOLE 250MG TABLET PO SCH ×2 (09:00→21:26)
[2020-04-08] MEDS: CHOLECALCIFEROL (D3) 1000 UNIT TABLET PO SCH (09:00)
[2020-04-08] MEDS: ASPIRIN 81MG TABLET PO SCH (09:00)
[2020-04-08] MEDS: ZINC SULFATE 220 MG ( 50 ) CAPSULE PO SCH (09:16)
[2020-04-08] MEDS: ASCORBIC ACID 500 MG TABLET PO SCH ×2 (09:16→21:26)
[2020-04-08] MEDS: AMLODIPINE 5MG TABLET PO SCH ×2 (09:18→21:26)
[2020-04-08] MEDS: FAMOTIDINE 20MG TABLET PO SCH (09:18)
[2020-04-08] MEDS: CARVEDILOL 6.25 MG TABLET PO SCH ×2 (09:18→21:27)
[2020-04-08] MEDS ORDERED: INSULIN REGULAR (HUMULIN R) 300UNITS/3ML VIAL IV SCH (10:00)
[2020-04-08] MEDS ORDERED: HEPARIN SODIUM 1,000 UNIT/1ML VIAL IV SCH (10:00)
[2020-04-08] MEDS ORDERED: DESMOPRESSIN ACETATE 4MCG/ML AMP IV ONE (10:00)
[2020-04-08] MEDS ORDERED: DEXTROSE 5% IV SCH (11:00)
[2020-04-08] MEDS ORDERED: WATER IV SCH (11:00)
[2020-04-08] MEDS ORDERED: DESMOPRESSIN ACETATE IV SCH (11:00)
[2020-04-08] MEDS ORDERED: SODIUM POLYSTYRENE SULFONATE 15 G/60 ML BOT PO SCH (11:00)
[2020-04-08] MEDS: MORPHINE SULFATE 2 MG/ML CPJ (NOT FOR IM USE) IV PRN (15:42)
[2020-04-08] MEDS: CEFEPIME 1,000 MG in DEXTROSE 5% WATER 50 ML IV SCH (21:26)
[2020-04-09] VITALS (12 sets, daily range): BP systolic 113–179; BP diastolic 35–90
[2020-04-09] MEDS: MORPHINE SULFATE 2 MG/ML CPJ (NOT FOR IM USE) IV PRN (06:29)
[2020-04-09] MEDS: BLOOD SUGAR DIAGNOSTIC STRIP TEST SCH ×4 (06:38→20:51)
[2020-04-09] MEDS: INSULIN LISPRO 100 UNITS/ML SUBCUT SCH ×4 (07:14→20:51)
[2020-04-09] MEDS: SEVELAMER CARBONATE 800 MG TABLET PO SCH ×3 (07:20→16:52)
[2020-04-09 07:57] LABS: BASOPHILS % 1.8 % (0.0-2.0); EOSINOPHILS % 3.5 % (0.0-5.0); HEMATOCRIT. 24.8 % (36.0-48.0); HEMOGLOBIN. 7.9 g/dL (12.0-16.0); LYMPHOCYTES % 24.8 % (20.0-50.0); MEAN CORPUSCULAR HEMOGLOBIN 25.7 pg (28.0-32.0); MEAN CORPUSCULAR VOLUME 80.9 fL (81.0-99.0); MEAN PLATELET VOLUME 9.7 fl (7.4-10.4); MONOCYTES % 8.6 % (2.0-8.0); NEUTROPHILS % 61.3 % (40.0-76.0); PLATELET 210 x1000/uL (130-400); RED BLOOD CELL COUNT 3.07 mill/uL (4.2-5.4)
[2020-04-09 08:14] LABS: PHOSPHORUS 4.8 mg/dL (2.5-4.9)
[2020-04-09] MEDS: FAMOTIDINE 20MG TABLET PO SCH (09:00)
[2020-04-09] MEDS: ZINC SULFATE 220 MG ( 50 ) CAPSULE PO SCH (09:00)
[2020-04-09] MEDS: ASCORBIC ACID 500 MG TABLET PO SCH ×2 (09:00→20:40)
[2020-04-09] MEDS: CHOLECALCIFEROL (D3) 1000 UNIT TABLET PO SCH (09:00)
[2020-04-09] MEDS: METRONIDAZOLE 250MG TABLET PO SCH ×2 (09:10→20:40)
[2020-04-09] MEDS: ASPIRIN 81MG TABLET PO SCH (09:10)
[2020-04-09] MEDS: CARVEDILOL 6.25 MG TABLET PO SCH ×2 (09:10→20:40)
[2020-04-09] MEDS: AMLODIPINE 5MG TABLET PO SCH ×2 (09:10→20:40)
[2020-04-09] MEDS: ACETAMINOPHEN 325MG TABLET PO PRN (20:40)
[2020-04-09] MEDS: CEFEPIME 1,000 MG in DEXTROSE 5% WATER 50 ML IV SCH (20:41)
[2020-04-09] MEDS ORDERED: EPOETIN ALFA-EPBX 10,000 UNIT/ML VIAL SUBCUT SCH (21:00)
[2020-04-10] VITALS (9 sets, daily range): BP systolic 130–168; BP diastolic 52–78
[2020-04-10] MEDS: BLOOD SUGAR DIAGNOSTIC STRIP TEST SCH ×2 (06:44→11:57)
[2020-04-10] MEDS: INSULIN LISPRO 100 UNITS/ML SUBCUT SCH ×2 (06:44→12:16)
[2020-04-10] MEDS: SEVELAMER CARBONATE 800 MG TABLET PO SCH ×2 (06:45→12:20)
[2020-04-10 07:55] LABS: BASOPHILS % 1.3 % (0.0-2.0); EOSINOPHILS % 4.3 % (0.0-5.0); HEMATOCRIT. 24.7 % (36.0-48.0); HEMOGLOBIN. 7.9 g/dL (12.0-16.0); LYMPHOCYTES % 22.1 % (20.0-50.0); MEAN CORPUSCULAR HEMOGLOBIN 25.7 pg (28.0-32.0); MEAN CORPUSCULAR VOLUME 80.9 fL (81.0-99.0); MONOCYTES % 10.4 % (2.0-8.0); NEUTROPHILS % 61.9 % (40.0-76.0); PLATELET 199 x1000/uL (130-400); RED BLOOD CELL COUNT 3.05 mill/uL (4.2-5.4); RED CELL DISTRIBUTION WIDTH 19.6 % (11.6-14.6)
[2020-04-10] MEDS: ASCORBIC ACID 500 MG TABLET PO SCH (08:08)
[2020-04-10] MEDS: ASPIRIN 81MG TABLET PO SCH (08:08)
[2020-04-10] MEDS: CARVEDILOL 6.25 MG TABLET PO SCH (08:08)
[2020-04-10] MEDS: ZINC SULFATE 220 MG ( 50 ) CAPSULE PO SCH (08:08)
[2020-04-10] MEDS: CHOLECALCIFEROL (D3) 1000 UNIT TABLET PO SCH (08:08)
[2020-04-10] MEDS: FAMOTIDINE 20MG TABLET PO SCH (08:09)
[2020-04-10] MEDS: CLOPIDOGREL 75MG TABLET PO SCH (08:09)
[2020-04-10] MEDS: METRONIDAZOLE 250MG TABLET PO SCH (08:09)
[2020-04-10] MEDS: AMLODIPINE 5MG TABLET PO SCH (08:09)
[2020-04-10 08:11] LABS: PHOSPHORUS 4.6 mg/dL (2.5-4.9)
[2020-04-10] MEDS: DIPHENHYDRAMINE 50MG/ML VIAL IV PRN (12:16)
== END 2020-04-10 17:08 | disposition home or self-care (01) | DRG 853 ==
LOC: ER 10:31 → 7EST 12:56 → CANRESERV 14:30 → ENRESERV 14:30 → 8WST 03-21 10:21 → 3WST 04-02 16:33
PROVIDERS: ADMIT Internal Medicine; ATTEND Internal Medicine
PROC: 5A1D70Z Performance of Urinary Filtration, Intermittent, Less than 6 Hours Per Day (ICD-10-PCS; 2020-03-21)
PROC: 5A1D70Z Performance of Urinary Filtration, Intermittent, Less than 6 Hours Per Day (ICD-10-PCS; 2020-03-22)
PROC: 5A1D70Z Performance of Urinary Filtration, Intermittent, Less than 6 Hours Per Day (ICD-10-PCS; 2020-03-25)
PROC: 5A1D70Z Performance of Urinary Filtration, Intermittent, Less than 6 Hours Per Day (ICD-10-PCS; 2020-03-27)
PROC: 02HV33Z Insertion of Infusion Device into Superior Vena Cava, Percutaneous Approach (ICD-10-PCS; 2020-03-28)
PROC: B5181ZA Fluoroscopy of Superior Vena Cava using Low Osmolar Contrast, Guidance (ICD-10-PCS; 2020-03-28)
PROC: B548ZZA Ultrasonography of Superior Vena Cava, Guidance (ICD-10-PCS; 2020-03-28)
PROC: 5A1D70Z Performance of Urinary Filtration, Intermittent, Less than 6 Hours Per Day (ICD-10-PCS; 2020-03-28)
PROC: 5A1D70Z Performance of Urinary Filtration, Intermittent, Less than 6 Hours Per Day (ICD-10-PCS; 2020-04-01)
PROC: 047K3ZZ Dilation of Right Femoral Artery, Percutaneous Approach (ICD-10-PCS; principal; 2020-04-02)
PROC: 047P3ZZ Dilation of Right Anterior Tibial Artery, Percutaneous Approach (ICD-10-PCS; 2020-04-02)
PROC: B41F1ZZ Fluoroscopy of Right Lower Extremity Arteries using Low Osmolar Contrast (ICD-10-PCS; 2020-04-02)
PROC: 5A1D70Z Performance of Urinary Filtration, Intermittent, Less than 6 Hours Per Day (ICD-10-PCS; 2020-04-03)
PROC: 5A1D70Z Performance of Urinary Filtration, Intermittent, Less than 6 Hours Per Day (ICD-10-PCS; 2020-04-05)
PROC: 0Y6R0Z0 Detachment at Right 2nd Toe, Complete, Open Approach (ICD-10-PCS; 2020-04-07)
PROC: 0Y6V0Z0 Detachment at Right 4th Toe, Complete, Open Approach (ICD-10-PCS; 2020-04-07)
PROC: 0Y6X0Z0 Detachment at Right 5th Toe, Complete, Open Approach (ICD-10-PCS; 2020-04-07)
PROC: 5A1D70Z Performance of Urinary Filtration, Intermittent, Less than 6 Hours Per Day (ICD-10-PCS; 2020-04-08)
PROC: 5A1D70Z Performance of Urinary Filtration, Intermittent, Less than 6 Hours Per Day (ICD-10-PCS; 2020-04-10)
DX: A41.9 Sepsis, unspecified organism (principal); N18.6 End stage renal disease; I21.4 Non-ST elevation (NSTEMI) myocardial infarction; I13.2 Hypertensive heart and chronic kidney disease with heart failure and with stage 5 chronic kidney disease, or end stage renal disease; E44.0 Moderate protein-calorie malnutrition; I42.9 Cardiomyopathy, unspecified; E11.52 Type 2 diabetes mellitus with diabetic peripheral angiopathy with gangrene; L97.419 Non-pressure chronic ulcer of right heel and midfoot with unspecified severity; I70.261 Atherosclerosis of native arteries of extremities with gangrene, right leg; R65.20 Severe sepsis without septic shock; M94.0 Chondrocostal junction syndrome [Tietze]; R56.9 Unspecified convulsions; I50.9 Heart failure, unspecified; I27.21 Secondary pulmonary arterial hypertension; E83.51 Hypocalcemia; E78.5 Hyperlipidemia, unspecified; E11.42 Type 2 diabetes mellitus with diabetic polyneuropathy; E11.22 Type 2 diabetes mellitus with diabetic chronic kidney disease; D63.8 Anemia in other chronic diseases classified elsewhere; Z20.822 Contact with and (suspected) exposure to COVID-19; E11.621 Type 2 diabetes mellitus with foot ulcer; K52.9 Noninfective gastroenteritis and colitis, unspecified; K59.00 Constipation, unspecified; Z99.2 Dependence on renal dialysis; Z89.512 Acquired absence of left leg below knee; Z79.02 Long term (current) use of antithrombotics/antiplatelets; Z79.4 Long term (current) use of insulin; Z79.82 Long term (current) use of aspirin; Z89.511 Acquired absence of right leg below knee; Z91.14 Patient's other noncompliance with medication regimen; E78.00 Pure hypercholesterolemia, unspecified; I35.0 Nonrheumatic aortic (valve) stenosis; Z68.22 Body mass index [BMI] 22.0-22.9, adult
CPT/HCPCS: 36415; 36573; 37224; 37228; 70551; 71045; 72191; 73620; 73706; 73721; 74177; 75710; 78452; 80048; 80053; 80061; 80202; 82040; 82550; 82553; 82962; 83036; 83605; 83615; 83735; 84100; 84134; 84145; 84484; 85025; 85347; 85379; 85651; 86140; 87070; 87075; 87426; 88304; 88311; 93005; 93017; 93306; 93922; 93970; 94640; 97110; 97162; 97164; 97166; 97530; 97535; 99285; A6261; A9500; C1725; C1760; C1769; C1893; J0692; J0885; J1100; J1170; J1200; J1644; J1650; J1815; J2060; J2250; J2270; J2405; J2543; J2597; J2704; J2785; J3010; J3370; J3490; J7040; J7060; Q9967; U0003